=== PATIENT | male | born 1940 | race Caucasian/White ===

== ENCOUNTER 2021-04-26 11:35 | Emergency (ER) | payer MEDICARE, BC, SELFPAY ==
[2021-04-26 11:39] VITALS: BP 156/101; PULSE 104; RESP 20; TEMP 36.4; O2SAT 95; BMI 33.0
--- NOTE | 2021-04-26 11:43 | CT_ITS ---
WS: [id number] CT CERVICAL TRAUMA TECHNIQUE: Noncontrast CT of the cervical spine with coronal and sagittal reformatted images. CLINICAL INFORMATION: head trauma, ams COMPARISON: None. DLP: 794.[address] scans at [facility] use at least one of these dose optimization techniques: automated e xposure control; mA and/or kV adjustment per patient size (includes targeted exams where dose is matc hed to clinical indication); or iterative reconstruction. FINDINGS: Exaggeration of the normal cervical lordosis. Moderate spondylitic changes. Normal craniocervical fidel ction. Normal C1-C2 articulation. Dens is normal in appearance. Normal occipital condyles. No high-gr matt spinal canal narrowing. Normal C1 ring. Chronic appearing well-corticated C7 spinous process frac ture. Normal prevertebral soft tissues. Mastoids air cells are well aerated. CT/CT cervical spin wo con* [id number] IMPRESSION: 1. Chronic appearing well-corticated C7 spinous process fracture. 2. No acute appearing cervical spine fractures.
--- NOTE | 2021-04-26 11:43 | CT_ITS ---
WS: [id number] CT HEAD TECHNIQUE: Noncontrast CT of the head obtained from the skullbase to the vertex. CLINICAL INFORMATION: head trauma, eliquis COMPARISON: None. DLP: 2572.[address] scans at [facility] use at least one of these dose optimization techniques: automated e xposure control; mA and/or kV adjustment per patient size (includes targeted exams where dose is matc hed to clinical indication); or iterative reconstruction. FINDINGS: No evidence of intracranial hemorrhage or mass effect. Ventricular system and basal cisterns are tracey nt. Moderate small vessel changes with moderate parenchymal volume loss. Chronic encephalomalacia in the left occipital lobe with calcification. Chronic infarcts left parietal occipital junction, right posterior temporal lobe, and bilateral posterior frontal lobes with encephalomalacia. Chronic lacunar infarcts in the caudate and basal ganglia. Intracranial vascular calcification. Mastoid air cells ar e well aerated. Mild mucosal thickening ethmoid air cells. Normal visualized soft tissues. CT/CT head wo con* [id number] IMPRESSION: 1. No evidence of intracranial hemorrhage or mass effect. 2. Moderate small vessel changes with moderate parenchymal volume loss. 3. Chronic encephalomalacia in the left occipital lobe with calcification. 4. Chronic lacunar infarcts in the caudate and basal ganglia. 5. No acute intracranial findings.
--- NOTE | 2021-04-26 11:43 | XRR_ITS ---
PROCEDURE INFORMATION: Exam: XR Chest Exam date and time: 04/26/2021 11:43 AM Age: 81 years old Clinical indication: Injury or trauma; Fall; Blunt trauma (contusions or hematomas); Injury date: 04/26/21; Prior surgery; Surgery type: Heart TECHNIQUE: Imaging protocol: XR of the chest. Views: 1 view. COMPARISON: CT cervical spin wo con* [id number] 04/26/2021 12:01 PM FINDINGS: Lungs: No acute pulmonary infiltrates are seen. There is a poor inspiration with elevation of diaphragm. Pleural spaces: Unremarkable. No pleural effusion. No pneumothorax. Heart/Mediastinum: The patient has undergone coronary bypass surgery. The cardiac silhouette is enlarged. Bones/joints: Unremarkable. XR/XR chest 1V portable [id number] IMPRESSION: Cardiomegaly.
--- NOTE | 2021-04-26 11:43 | XRR_ITS ---
PROCEDURE INFORMATION: Exam: XR Pelvis Exam date and time: 04/26/2021 11:43 AM Age: 81 years old Clinical indication: Injury or trauma; Fall; Blunt trauma (contusions or hematomas); Does not apply; Pelvic region; Injury date: 04/26/21; Prior surgery; Surgery type: Penis implant TECHNIQUE: Imaging protocol: XR pelvis. Views: 1 or 2 view. COMPARISON: CT abdomen pelvis w con* [id number] 11/16/2017 11:28 AM FINDINGS: Bones/joints: Chronic degenerative changes are present in the lower lumbar spine with joint space narrowing sclerosis and small osteophytes. There is narrowing of the left hip joint. No fracture or other acute bony abnormalities are seen. Soft tissues: Unremarkable. Organs: Penile prosthesis is present. An intramedullary gagandeep is seen in the proximal left femur. Vasculature: Atherosclerotic calcifications are present in the iliofemoral arteries. XR/XR pelvis 1-2V* [id number] IMPRESSION: No acute bony abnormality.
--- NOTE | 2021-04-26 11:43 | XRR_ITS ---
PROCEDURE INFORMATION: Exam: XR Right Humerus Exam date and time: 04/26/2021 11:43 AM Age: 81 years old Clinical indication: Injury or trauma; Fall; Blunt trauma (contusions or hematomas); Arm, upper; Right; Injury date: 04/26/21 TECHNIQUE: Imaging protocol: XR Right humerus. Views: 2 or more views. COMPARISON: No relevant prior studies available. FINDINGS: Bones/joints: Normal. Soft tissues: Normal. XR/[place] [id number] IMPRESSION: No significant abnormality is seen in the right humerus.
--- NOTE | 2021-04-26 11:46 | ED_ITS ---
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--uses walker--fall risk, in physical therapy) Location of injury: head Severity: moderate Quality: other (laceration right forehead) Associated symptoms-after fall: Reports confusion, difficulty walking (chronic) and other (on elliquis, afib on monitor for EMS); Denies abdominal pain, chest pain, headache(s) or neck pain Review of Systems General: Reports: 10 or more systems reviewed and unremarkable except in HPI and below Const: Denies: fever(s), chills or body aches Eyes: Denies: change in vision ENMT: Denies: throat pain Card: Denies: chest pain Resp: Denies: dyspnea or productive cough GI: Denies: abdominal pain : Denies: flank pain, dysuria or urinary frequency Musc: Reports: extremity swelling (chronic); Denies: neck pain, back pain, extremity pain or joint pain Skin/Breast: Reports: other (laceration right forehead); Denies: rash or erythema Neuro: Reports: difficulty walking (chronic) and confusion; Denies: headache(s), numbness in extremities, weakness in extremities or Slurred speech present Physical Exam Const: COMMON NORMALS: alert and well nourished; negative for patient oriented x3 (oriented to month, name, location but not year/most recent holiday) and negative for healthy appearing EXAM LIMITATIONS: altered mental status GENERAL APPEARANCE: cooperative, well developed and frail appearing; not in distress and no odor of alcohol detected ORIENTATION/CONSCIOUSNESS: Yes awake, Yes oriented to person, Yes oriented to place and Yes confused; not oriented to time HENMT: COMMON NORMALS: normocephalic, external ears normal and Normal external nose present; head/scalp not atraumatic HEAD & SCALP: normocephalic and contusion (with laceration, right forehead); not normal to inspection and not atraumatic FACE & SINUS: sinuses nontender and other (laceration right forehead); no crepitus and no Facial tenderness on exam of face and sinuses NOSE: Normal external nose present and Normal nares present; no Nasal discharge present and no Epistaxis present EXTERNAL EAR: Yes external ears normal MOUTH: Normal oral and palatal mucosa present, lip normal and tongue normal; no mouth trauma and no muffled voice Eye: COMMON NORMALS: Equal, round and reactive pupils present, EOMs intact bilaterally and conjunctivae normal GENERAL EYE: appearance normal, both eyes and all related structures (with exception of evidence of surgery b/l) VISUAL ACUITY: Yes other (poor vision-- says chronic) PERIORBITAL: periorbital findings abnormal (early bruising around right orbit) EYELID: eyelids normal CONJUNCTIVA: Yes conjunctivae normal PUPIL: Yes Equal, round and reactive pupils present Neck/C-Spine: COMMON NORMALS: no JVD GENERAL: Yes normal visual inspection, Yes trachea midline, No anterior neck swelling, No tender and Yes other (bad kyphosis with limited ROM) Chest: COMMONS NORMALS: normal inspection of the chest (except old mid sternotomy) CHEST: Yes Symmetrical chest wall rise, No crepitus, No localized rib tenderness with anteroposterior compression, No Sternal flail present, No Ec chymosis present and No wounds Resp: COMMON NORMALS: normal respiratory effort, No retractions, No use of accessory muscles and clear to auscultation bilaterally EFFORT & INSPECTION: Yes able to speak in complete sentences and Yes symmetric chest movement AUSCULTATION: clear to auscultation bilaterally Cardio: COMMON NORMALS: no JVD RATE: tachycardic PERIPHERAL PULSES: radial pulses present GI: COMMON NORMALS: Soft to palpation and non-tender INSPECTION: Yes normal to inspection, No abdominal wall ecchymosis and No abdominal distension PA LPATION: Yes Soft to palpation, No Tenderness to palpation present (GI) and No Guarding due to palpation present (GI) : COMMON NORMALS: Yes no CVA tenderness BLADDER/KIDNEY EXAM: Yes no CVA tenderness Back/Pelvis: COMMON NORMALS: no CVA tenderness, thoracic and lumbar spine normal to inspection, no thoracic nor lumbar tenderness and thoraco-lumbar ROM normal THORACIC SPINE/UPPER BACK: Yes normal to inspection, Yes thoracic ROM normal and No pain with ROM LUMBAR SPINE/LOWER BACK: Yes normal to inspection, Yes lumbar ROM normal and No pain with ROM PELVIS: Yes no pain with anterior-posterior compression and Yes no pain with lateral compression Extremity: COMMON NORMALS: normal to inspection GENERAL: Yes normal exam except as noted OTHER: PROM of all extremities with axial loading/distraction normal except some pain with PROM right shoulder Neuro: COMMON NORMALS: moves all extremities, no focal motor deficits and no sensory deficits noted; negative for patient oriented x3 (oriented to month, name, location but not year/most recent holiday) SENSORIUM/ORIENTATION: Yes alert, Yes oriented to person, Yes oriented to place and No oriented to time OTHER: Chronic RUE>RLE weakness from old stroke--no other acute neuro findings except his poor orientation Psych: COMMON NORMALS: mental status grossly normal, Normal thought process present, cooperative, normal affect and speech normal ATTITUDE: Yes calm SPEECH: Yes normal speech THOUGHT PROCESS: Normal thought process present ATTENTION/CONCENTRATION: Yes attention grossly intact Skin: COMMON NORMALS: no rashes or lesions noted, turgor normal and no jaundice GENERAL SKIN EXAM: no rashes or lesions noted and turgor normal TRAUMA: laceration Procedures Laceration Laceration 1: Site: face Side (If applicable): right Size (cm): 7 (total with Y shape) Description: stellate (Y shaped), flap and other (through right eyebrow) Depth: simple, single layer Local Anesthetic: lidocaine 1% and with epi Amount of anesthesia used (mL): 8 Pre-repair: wound explored, irrigated extensively and deep structures intact Skin layer closed with: other (ethilon) Size (cm): 5-0 Number of sutures: 9 Technique: simple, interrupted Course ED course: 81 yo m with frequent falls, shuffling gait, deconditioning s/p CVA with right sided weakness who was doing PT when he caught his foot on an elevated piece of trim. He isn't fully oriented here but says that he has a bit of dementia and isn't concerned with this. She feels this is his baseline. There is large lac to right forehead. Will get CT head and cervical spine (elliquis, kyphosis), xray chest, xray right humerus, pelvis xray. does not believe he needs a medical workup. He has known atrial fibrillation. Vital Signs: Vital signs: Vital Signs Temperature 97.7 F 04/26/21 12:27 Pulse Rate 95 04/26/21 12:27 Respiratory Rate 18 04/26/21 12:27 Blood Pressure 142/90 04/26/21 12:27 Pulse Oximetry 96 04/26/21 12:27 MDM - Fall MDM Narrative: Medical decision making narrative: The has provided hearing aids for patient. As time has passed in ER, he has been laughing and interacting. He still has a hard time remembering the year but is otherwise oriented. I performed laceration repair and obtained hemostasis. The patient's head CT and cervical spine CT are neg for acute findings. I would normally consider an observation admission for elderly head injuries on [facility]. However, hospital is completely full and we are boarding patients in the ER. The states she has home health and daughters that could help her watch him closely, and she's okay with monitoring from home. Xrays of the pelvis, humerus (R) and chest w/o acute disease.\ CT head/neck w/o acute findings. Will d/c with family. Lab Data: Labs: Lab Results 04/26/21 Range/Units 12:23 POC Glucose 109 (70-110) mg/dL Discharge Plan Discharge Condition: Stable Discharge Orders: Discharge ED (Routine); Ordered 04/26/21 Ordered By: Roland Knapp Referrals: Melanie Whyte DO [Primary Care Provider] - 1 week (Suture removal forhead. Fall with concussion on blood thinner.) Discharge Diet: Advance as tolerated Discharge Activity: Increase activity as tolerated Patient Instructions: Concussion/Head Injury - Adult, Stitches and Sow[place]a Care Coding Level of Care Code ED Channel Opener for Chg Fwd Exam Comprehensive
[2021-04-26 11:53] VITALS: BP 185/81; PULSE 84; RESP 16; TEMP 36.8; O2SAT 96
[2021-04-26 12:26] LABS: Glucose Point of Care 109 mg/dL (70-110)
[2021-04-26 12:27] VITALS: BP 142/90; PULSE 95; RESP 18; TEMP 36.5; O2SAT 96
--- NOTE | 2021-04-26 13:08 | PC.PHAR ---
PT UNABLE TO CONFIRM MEDICATIONS. PT'S WAS NOT ABLE TO HELP WITH THE MEDICATIONS NOR WAS PT'S DAUGHTER. THE DAUGHTER STATES THAT PT IS ALLERGIC TO MORPHINE. GOING BY MEDICATION HISTORY AND PHARMACY LIST.
[2021-04-26] MEDS: tetanus-dipt-pertussis 0.5 mL SDV IM (13:12)
[2021-04-26 13:17] VITALS: BP 131/78; PULSE 98; RESP 16; TEMP 36.6; O2SAT 96
== END 2021-04-26 13:29 ==
PROVIDERS: Emergency Provider Emergency Medicine; PCP Family Medicine
DX: S01.111A Laceration without foreign body of right eyelid and periocular area, initial encounter (principal); W18.09XA Striking against other object with subsequent fall, initial encounter; Z23 Encounter for immunization
CPT/HCPCS: 12014; 36416; 70450; 71045; 72125; 72170; 73060; 82962; 90471; 90715; 99283

== ENCOUNTER 2021-07-10 10:43 | Emergency (ER) | payer MEDICARE, BC, SELFPAY ==
--- NOTE | 2021-07-10 10:51 | W.ED.FALL ---
HPI - Fall General: Chief Complaint: Head Injury Stated Complaint: FALL WITH LACERATION Time Seen by Provider: 07/10/21 10:50 History of Present Illness: HPI Narrative: Mr. Carvajal is an 81-year-old gentleman with reported history of mild dementia who presents to the emergency department due to a fall. He has previously presented due to fall which he attributes to a history of leg injury resulting in left foot difficulty. The exact circumstances of his fall today are unclear as he is the only one in the room. He does not recall the fall. He currently denies complaints. He does have a laceration above the right eye which he apparently had previously and may be broke up with the stitches. History is otherwise limited by patient's mental status. Tdap administered 04/26/2021. Review of Systems General: Reports: ROS unobtainable due to mental status Physical Exam Narrative: EXAM NARRATIVE: GENERAL/CONSTITUTIONAL - well-appearing. No acute distress. Eyes - PERRL, no conjunctival injection ENMT - laceration with complex T-shaped involving the eyebrow above the right eye. Atraumatic external nose and ears. Jaw alignment normal. Dentition intact. Moist mucous membranes NECK - supple. trachea midline CARDIOVASCULAR - tachycardic rate and regular rhythm. Peripheral pulses 2+ and equal RESPIRATORY -clear to auscultation bilaterally. ABDOMEN/GI - Nontender/Nondistended. MSK - Extremities without obvious deformity or tenderness to palpation SKIN - Warm, Dry NEURO - alert. Poor historian. No focal neurologic deficits. Moves all extremities equally. Procedures Laceration Laceration 1: Site: face Side (If applicable): right Description: stellate, irregular and other (complex T shap through eyebrow with extension to R periorbital region) Local Anesthetic: lidocaine 1% Amount of anesthesia used (mL): 8 Pre-repair: wound explored and irrigated extensively Skin layer closed with: nylon Size (cm): 5-0 Number of sutures: 11 Technique: simple, interrupted Subcutaneous layer closed with: vicryl Size: 5-0 Number of sutures: 3 Technique: simple, interrupted Course ED course: - Patient was seen and evaluated by me at bedside - Patient placed on cardiac monitors, IV access obtained - Initial evaluation notable for exam as noted above, patient does not provide significant history as memory is poor. Laceration with dressing in place, some oozing. -Tdap is up-to-date -Given the patient does not recall event or provoking factors laboratory studies felt to be warranted. No significant finding to explain patient's symptoms. - Imaging notable for no acute internal or bony injury - Laceration was complex to repair with fragile and tissue with abrasion and likely missing piece. - Upon serial reexamination after treatment the patient was improved - Based on patient history, evaluation, labs, and imaging as interpreted the most likely cause of the patient's condition is fall of unclear etiology with closed head injury and forehead laceration repaired with sutures - The results of ED evaluation were discussed with the patient and his family including prescriptions and/or symptomatic cares (if applicable) including appropriate and responsible use, followup plan, and return precautions. The patient and his family verbalized understanding and felt safe for discharge. - Patient discharged in satisfactory condition. Vital Signs: Vital signs: Vital Signs Temperature 98.6 F 07/10/21 11:46 Pulse Rate 96 07/10/21 15:07 Respiratory Rate 22 H 07/10/21 15:07 Blood Pressure 127/95 07/10/21 15:07 Pulse Oximetry 94 07/10/21 15:07 MDM - Fall Medical Records: Attestation: I reviewed the patient's medical records. Lab Data: Attestation: I reviewed the patient's lab results. Labs: Lab Results 07/10/21 07/10/21 07/10/21 11:04 11:04 11:04 WBC 6.2 10^3/uL 10^3/ uL (4.0-10.0) RBC 4.93 10^6/uL 10^6 /uL (4.1-5.3) Hgb 12.9 g/dL g/dL (11.7-16.6) Hct 40.0 % L % (42.0-52.0) MCV 81.1 fl fl (80-94) MCH 26.2 pg L pg (28.0-34.0) MCHC 32.3 g/dL g/dL (30.0-36.0) RDW 16.5 % H % (12.1-15.1) Plt Count 252 10^3/cmm 10^3 /cmm (130-400) MPV 10.2 fL fL (7.4-10.4) Neut % (Auto) 70.7 % % Lymph % (Auto) 14.4 % % [place] % (Auto) 12.1 % % Eos % (Auto) 1.8 % % Baso % (Auto) 0.5 % % Neut # (Auto) 4.37 10^3/uL 10^3 /uL (1.8-7.7) Lymph # (Auto) 0.9 10^3/uL 10^3/ uL (0.8-4.8) [place] # (Auto) 0.8 10^3/uL 10^3/ uL (0.2-0.9) Eos # (Auto) 0.1 10^3/uL 10^3/ uL (0.0-0.8) Baso # (Auto) 0.0 10^3/uL 10^3/ uL (0.0-0.1) Nucleated RBC % (a uto) 0 % % Nucleated RBCs # 0.0 /100WBC /100W BC Sodium 136 mmol/L mmol/L (136-145) Potassium 4.1 mmol/L mmol/L (3.5-5.1) Chloride 104 mmol/L mmol/L (98-107) Carbon Dioxide 21 mmol/L L mmol/ L (22-29) Anion Gap 15.1 (5-19) BUN 16 mg/dL mg/dL (8-23) Creatinine 1.0 mg/dL mg/dL (0.7-1.2) GFR Calculation Not Reportable Glucose 106 mg/dL mg/dL (65-115) Calculated Osmolal ity 284 mOsm/kg L mOs m/kg (285-295) Calcium 8.5 mg/dL mg/dL (8.5-10.5) Total Bilirubin 0.3 mg/dL mg/dL (0.15-1.2) AST 16 U/L U/L (0-40) ALT 15 U/L U/L (0-41) Alkaline Phosphata se 115 IU/L IU/L (40-130) Troponin T Baselin e 40 ng/L H ng/L (0-15) Troponin T 120 Min [place] Troponin T Total Protein 6.3 g/dL L g/dL (6.6-8.7) Albumin 3.8 g/dL g/dL (3.5-5.2) Globulin 2.5 g/dL g/dL (1.3-4.6) 07/10/21 13:45 WBC RBC Hgb Hct MCV MCH MCHC RDW Plt Count MPV Neut % (Auto) Lymph % (Auto) [place] % (Auto) Eos % (Auto) Baso % (Auto) Neut # (Auto) Lymph # (Auto) [place] # (Auto) Eos # (Auto) Baso # (Auto) Nucleated RBC % (a uto) Nucleated RBCs # Sodium Potassium Chloride Carbon Dioxide Anion Gap BUN Creatinine GFR Calculation Glucose Calculated Osmolal ity Calcium Total Bilirubin AST ALT Alkaline Phosphata se Troponin T Baselin e Troponin T 120 Min [place] 38.02 ng/L H ng/L (0-15) Delta Troponin T -1.98 ABS# L ABS# (0-10) Total Protein Albumin Globulin Discharge Plan Discharge Patient Disposition: Home Clinical Impression: Closed head injury, Fall, Laceration, Atrial fibrillation Condition: Stable Prescriptions: New metoprolol tartrate 25 mg tablet 25 mg PO BID Qty: 60 RF: 0 Discharge Orders: Discharge ED (Routine); Ordered 07/10/21 Ordered By: Cristino Grayson Referrals: Melanie Whyte DO [Primary Care Provider] - Discharge Diet: Usual diet Discharge Activity: Resume usual activity Patient Instructions: A-fib (Atrial Fibrillation) (ED), Care For Your Stitches (ED), Fall Prevention for Older Adults (ED), Head Injury (ED), Head Laceration (ED) Activity Restrictions/Additional Instructions: Thank you for visiting the emergency department. You were seen and evaluated for fall with laceration. This was repaired at bedside. Sutures should stay in for 7 days. As instructed, do not get these wet for 24 hours, after that do not soak them. There was a missing piece of skin and so watch for signs of infection including increased pain, redness, drainage, fevers, chills, visual changes, or anything else that you think may need repeat care. Additionally you were found to be in atrial fibrillation with rapid ventricular response. After discussion with cardiology this requires new medication which you will be prescribed. Please follow-up with your primary care provider and cardiology. Please return to the emergency department for anything that you are concerned about and feel needs emergency department evaluation. Coding Level of Care Code ED Division Toll Wire Chief for Gail Liu
[2021-07-10 10:57] VITALS: BP 142/112; PULSE 117; RESP 22; TEMP 36.9; O2SAT 96; BMI 33.0
--- NOTE | 2021-07-10 10:58 | CTR_ITS ---
PROCEDURE INFORMATION: Exam: CT Maxillofacial Without Contrast Exam date and time: 07/10/2021 10:58 AM Age: 81 years old Clinical indication: Injury or trauma; Fall; Blunt trauma (contusions or hematomas); Forehead; Additional info: Fall, head trauma TECHNIQUE: Imaging protocol: Computed tomography images of the face without contrast. Radiation optimization: All CT scans at this facility use at least one of these dose optimization techniques: automated exposure control; mA and/or kV adjustment per patient size (includes targeted exams where dose is matched to clinical indication); or iterative reconstruction. COMPARISON: CT head wo con* [id number] 07/10/2021 11:25 AM RADIATION DOSE METRICS: Total DLP (mGy-cm): 744.34 FINDINGS: Orbital cavity: Orbits are normal. Globes are unremarkable. Bones/joints: No acute fracture. Paranasal sinuses: Normal. No air-fluid levels. Soft tissues: Soft tissue swelling and/or hematoma over the right cheek, orbit and forehead with lacerations over the right frontal scalp and right forehead. CT/CT facial bones wo con* [id number] IMPRESSION: Soft tissue swelling and/or hematoma over the right cheek, orbit and forehead with lacerations over the right frontal scalp and right forehead. Radiation Dose CTDIVOL = (mGy): DLP = 744.34 (mGy-cm)
--- NOTE | 2021-07-10 10:58 | CTR_ITS ---
PROCEDURE INFORMATION: Exam: CT Cervical Spine Without Contrast Exam date and time: 07/10/2021 10:58 AM Age: 81 years old Clinical indication: Injury or trauma; Fall; Blunt trauma; Additional info: Fall, head trauma, AMS TECHNIQUE: Imaging protocol: Computed tomography images of the cervical spine without contrast. Radiation optimization: All CT scans at this facility use at least one of these dose optimization techniques: automated exposure control; mA and/or kV adjustment per patient size (includes targeted exams where dose is matched to clinical indication); or iterative reconstruction. COMPARISON: CT cervical spin wo con* [id number] 04/26/2021 12:01 PM RADIATION DOSE METRICS: Total DLP (mGy-cm): 781.77 FINDINGS: Bones/joints: Dextroscoliosis. Moderate to severe multilevel spine degenerative changes including degenerative disc disease, spondylosis and facet degenerative changes. Discs/Spinal canal/Neural foramina: Multilevel bilateral foraminal stenosis. Lungs: Lung apices are normal. Vasculature: Severe calcified carotid artery disease. Soft tissues: Unremarkable. CT/CT cervical spin wo con* [id number] IMPRESSION: No acute C-spine findings. Radiation Dose CTDIVOL = (mGy): DLP = 781.77 (mGy-cm)
--- NOTE | 2021-07-10 10:58 | CTR_ITS ---
PROCEDURE INFORMATION: Exam: CT Head Without Contrast Exam date and time: 07/10/2021 10:58 AM Age: 81 years old Clinical indication: Injury or trauma; Fall; Blunt trauma (contusions or hematomas); Additional info: Fall, head trauma TECHNIQUE: Imaging protocol: Computed tomography of the head without contrast. Radiation optimization: All CT scans at this facility use at least one of these dose optimization techniques: automated exposure control; mA and/or kV adjustment per patient size (includes targeted exams where dose is matched to clinical indication); or iterative reconstruction. 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 Cerebral ventricles: No ventriculomegaly. Paranasal sinuses: Mild left ethmoid sinus disease. Mastoid air cells: Visualized mastoid air cells are well aerated. Vasculature: Severe calcified intracranial atherosclerotic vessel disease. Bones/joints: Unremarkable. No acute fracture. Soft tissues: Soft tissue swelling and/or hematoma over the right cheek, orbit and forehead. Possible laceration over the right lateral supraorbital area and forehead. CT/CT head wo con* [id number] IMPRESSION: 1. Mild left ethmoid sinus disease. 2. Soft tissue swelling and/or hematoma over the right cheek, orbit and forehead. 3. Possible laceration over the right lateral supraorbital area and forehead. 4. No acute intracranial findings. Radiation Dose CTDIVOL = (mGy): DLP = 1144.02 (mGy-cm)
--- NOTE | 2021-07-10 11:03 | XRR_ITS ---
PROCEDURE INFORMATION: Exam: XR Chest Exam date and time: 07/10/2021 11:03 AM Age: 81 years old Clinical indication: Fall with trauma. Bleeding/hemorrhage. Prior open heart surgery. TECHNIQUE: Imaging protocol: XR of the chest. Views: 1 view. COMPARISON: CR XR chest 1V portable [id number] 04/26/2021 12:10 PM FINDINGS: Lungs: There is mild scarring and/or atelectasis at the lung bases. Pleural spaces: No pleural effusion.. No pneumothorax. Heart/Mediastinum: The cardiac silhouette is unchanged. No gross evidence of pneumomediastinum. Bones/joints: Median sternotomy wires and mediastinal closure hardware is seen. No gross acute fracture. XR/XR chest 1V portable [id number] IMPRESSION: 1. No acute cardiopulmonary abnormality identified. 2. Stable cardiomegaly. Radiation Dose CTDIVOL = (mGy): DLP = (mGy-cm)
[2021-07-10 11:19] LABS: Basophils % 0.5 %; Eosinophils # 0.1 10^3/uL (0.0-0.8); Eosinophils % 1.8 %; Hemoglobin 12.9 g/dL (11.7-16.6); Lymphocytes # 0.9 10^3/uL (0.8-4.8); Lymphocytes % 14.4 %; Mean Corpuscular HGB Conc 32.3 g/dL (30.0-36.0); Mean Corpuscular Hemoglobin 26.2 pg (28.0-34.0); Mean Corpuscular Volume 81.1 fl (80-94); Mean Platelet Volume 10.2 fL (7.4-10.4); Monocytes # 0.8 10^3/uL (0.2-0.9); Monocytes % 12.1 %; Neutrophils # 4.37 10^3/uL (1.8-7.7); Neutrophils % 70.7 %; Nucleated Red Blood Cells % 0 %; Platelet Count 252 10^3/cmm (130-400); Red Blood Count 4.93 10^6/uL (4.1-5.3); Red Cell Distribution Width 16.5 % (12.1-15.1); White Blood Count 6.2 10^3/uL (4.0-10.0)
[2021-07-10 11:40] LABS: Alanine Aminotransferase 15 U/L (0-41); Albumin Level 3.8 g/dL (3.5-5.2); Alkaline Phosphatase 115 IU/L (40-130); Anion Gap 15.1 (5-19); Aspartate Amino Transferase 16 U/L (0-40); Blood Urea Nitrogen 16 mg/dL (8-23); Calcium 8.5 mg/dL (8.5-10.5); Carbon Dioxide 21 mmol/L (22-29); Chloride 104 mmol/L (98-107); Globulin 2.5 g/dL (1.3-4.6); Glucose 106 mg/dL (65-115); Osmolality Calculated 284 mOsm/kg (285-295); Potassium 4.1 mmol/L (3.5-5.1); Sodium 136 mmol/L (136-145); Total Bilirubin 0.3 mg/dL (0.15-1.2); Total Protein 6.3 g/dL (6.6-8.7)
[2021-07-10 11:41] LABS: Troponin(5th) Baseline 40 ng/L (0-15)
[2021-07-10 11:46] VITALS: BP 142/87; PULSE 110; RESP 23; TEMP 37; O2SAT 96
[2021-07-10] MEDS: metoprolol tartrate 1 mg/1 mL SDV 5 mL 2.5 MG IVP (12:42)
[2021-07-10] MEDS: lidocaine 1% INJ 20 mL INJECTION (12:45)
--- NOTE | 2021-07-10 12:59 | ECG_ITS ---
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 Measurements Intervals [place] Rate: 102 P: GA: QRS: 117 QRSD: 110 T: 42 QT: 365 QTc: 477 Interpretive Statements ATRIAL FIBRILLATION WITH RAPID VENTRICULAR RESPONSE INDETERMINATE AXIS LEFT POSTERIOR FASCICULAR BLOCK [QRS AXIS > 109, INFERIOR Q] INFERIOR MYOCARDIAL INFARCTION , PROBABLY OLD [40+ ms Q WAVE AND/OR ST/T ABNORMALITY IN II/aVF] ANTEROLATERAL MYOCARDIAL INFARCTION , OF INDETERMINATE AGE [40+ ms Q WAVE IN I/aVL/V3-V6] No previous ECG available for comparison Electronically Signed On 07-10-2021 15:57:34 [employer] LIBRARY PROFESSOR by Ulysses Jimenez M.D. [id number]
[2021-07-10 14:16] LABS: Troponin 5 2HR 38.02 ng/L (0-15)
[2021-07-10 14:18] LABS: Troponin 5 2HR Delta -1.98 ABS# (0-10)
[2021-07-10] MEDS: metoprolol tartrate 1 mg/1 mL SDV 5 mL 5 MG IVP ×2 (14:26→15:03)
[2021-07-10 15:07] VITALS: BP 127/95; PULSE 96; RESP 22; O2SAT 94
[2021-07-10] MEDS: acetaminophen 325 mg Tablet 650 MG PO (16:13)
--- NOTE | 2021-07-11 13:57 | DCPLANNER ---
auto parts manager had message to schedule a follow up appointment for patient with [facility]. auto parts manager called [facility], spoke with Nicki, gave clinic patients information. A follow up appointment was scheduled for Sunday, July 20, 2021 at 10:[address] Jimenez. auto parts manager called, spoke with patients , gave her the appointment information.
--- NOTE | 2021-08-17 14:33 | DCPLANNER ---
Patient had a follow up appointment scheduled for 07.20.21 with heart care - patient did attend appointment.
== END 2021-07-10 16:30 | disposition home or self-care (01) ==
PROVIDERS: Emergency Provider Emergency Medicine; PCP Family Medicine
DX: S09.8XXA Other specified injuries of head, initial encounter (principal); I48.91 Unspecified atrial fibrillation; S01.111A Laceration without foreign body of right eyelid and periocular area, initial encounter; W19.XXXA Unspecified fall, initial encounter
CPT/HCPCS: 12054; 36415; 70450; 70486; 71045; 72125; 80053; 84484; 85025; 93005; 96374; 96376; 99284; 99291; J3490

== ENCOUNTER 2021-07-22 11:51 | Observation (INO) | payer MEDICARE, BC, SELFPAY ==
[2021-07-22] VITALS (7 sets, daily range): BP systolic 103–139; BP diastolic 60–84; PULSE 74–102; RESP 15–18; TEMP 36.5–36.8; O2SAT 95–99; BMI 31.7; BMI 33.0
--- NOTE | 2021-07-22 11:53 | CTR_ITS ---
PROCEDURE INFORMATION: Exam: CT Cervical Spine Without Contrast Exam date and time: 07/22/2021 11:53 AM Age: 81 years old Clinical indication: Injury or trauma; Fall; Blunt trauma; Patient HX: PT fell this day hitting head TECHNIQUE: Imaging protocol: Computed tomography images of the cervical spine without contrast. Radiation optimization: All CT scans at this facility use at least one of these dose optimization techniques: automated exposure control; mA and/or kV adjustment per patient size (includes targeted exams where dose is matched to clinical indication); or iterative reconstruction. COMPARISON: CT cervical spin wo con* [id number] 07/10/2021 11:31 AM RADIATION DOSE METRICS: Total DLP (mGy-cm): 768.56 FINDINGS: Bones/joints: No fracture or other acute bone or joint abnormalities are seen in the cervical spine. Discs/Spinal canal/Neural foramina: Chronic degenerative disease is present with scattered disc space narrowing sclerosis and osteophytes. There is sclerosis narrowing and hypertrophy of the facet joints. There is no significant spinal stenosis. Lungs: Lung apices are normal. Vasculature: There is bilateral carotid artery calcification. A stent is present in the left carotid artery. There are surgical clips along the right carotid artery. Soft tissues: Unremarkable. CT/CT cervical spin wo con* [id number] IMPRESSION: Chronic degenerative disease. No acute abnormality. Radiation Dose CTDIVOL = (mGy): DLP = 768.56 (mGy-cm)
--- NOTE | 2021-07-22 11:53 | CTR_ITS ---
PROCEDURE INFORMATION: Exam: CT Head Without Contrast Exam date and time: 07/22/2021 11:53 AM Age: 81 years old Clinical indication: Injury or trauma; Fall; Blunt trauma (contusions or hematomas); Injury date: 07/22/2021; Patient HX: PT fell this day. Laceration to R side of head TECHNIQUE: Imaging protocol: Computed tomography of the head without contrast. Radiation optimization: All CT scans at this facility use at least one of these dose optimization techniques: automated exposure control; mA and/or kV adjustment per patient size (includes targeted exams where dose is matched to clinical indication); or iterative reconstruction. COMPARISON: CT head wo con* [id number] 07/10/2021 11:25 AM RADIATION DOSE METRICS: Total DLP (mGy-cm): 1225.28 FINDINGS: Brain: No intracranial hemorrhage, edema or other acute abnormalities are seen in the brain. There is generalized chronic atrophy with prominence of the ventricles and sulci. There is decreased white matter density which indicates chronic small vessel ischemia. There is focal encephalomalacia in the left occipital lobe from old infarct. Cerebral ventricles: The ventricles are prominent due to chronic atrophy. Paranasal sinuses: Visualized sinuses are unremarkable. No fluid levels. Mastoid air cells: Visualized mastoid air cells are well aerated. Bones/joints: Unremarkable. No acute fracture. Soft tissues: There is a subcutaneous hematoma over the right side of the frontal bone. [place] are present in a laceration. There is a tiny subcutaneous bubble of air. CT/CT head wo con* [id number] IMPRESSION: 1. No acute abnormality in the brain. 2. Chronic atrophy with chronic white matter ischemic changes and old left occipital infarct. 3. Right frontal subcutaneous hematoma. Radiation Dose CTDIVOL = (mGy): DLP = 1225.28 (mGy-cm)
--- NOTE | 2021-07-22 11:53 | CTR_ITS ---
PROCEDURE INFORMATION: Exam: CT Maxillofacial Without Contrast Exam date and time: 07/22/2021 11:53 AM Age: 81 years old Clinical indication: Injury or trauma; Fall; Bleeding/hemorrhage and blunt trauma (contusions or hematomas); Forehead; Orbit/periorbital; Right; Patient HX: PT fell this day hitting R periorbital area of face TECHNIQUE: Imaging protocol: Computed tomography images of the face without contrast. Radiation optimization: All CT scans at this facility use at least one of these dose optimization techniques: automated exposure control; mA and/or kV adjustment per patient size (includes targeted exams where dose is matched to clinical indication); or iterative reconstruction. COMPARISON: CT facial bones wo con* [id number] 07/10/2021 11:28 AM RADIATION DOSE METRICS: Total DLP (mGy-cm): 764.56 FINDINGS: Orbital cavity: Orbits are normal. Globes are unremarkable. Bones/joints: No acute fracture. Paranasal sinuses: Normal. No air-fluid levels. Soft tissues: There is a subcutaneous hematoma over the right side of the frontal bone. There are yimi and an overlying laceration. CT/CT facial bones wo con* [id number] IMPRESSION: 1. There is a subcutaneous hematoma over the right frontal region. 2. No significant bony abnormality. Radiation Dose CTDIVOL = (mGy): DLP = 764.56 (mGy-cm)
[2021-07-22 12:43] LABS: Basophils # 0.1 10^3/uL (0.0-0.1); Basophils % 0.5 %; Eosinophils # 0.1 10^3/uL (0.0-0.8); Hemoglobin 12.5 g/dL (11.7-16.6); Lymphocytes % 8.2 %; Mean Corpuscular HGB Conc 30.5 g/dL (30.0-36.0); Mean Corpuscular Hemoglobin 25.9 pg (28.0-34.0); Mean Corpuscular Volume 85.1 fl (80-94); Mean Platelet Volume 9.9 fL (7.4-10.4); Monocytes # 0.8 10^3/uL (0.2-0.9); Monocytes % 6.9 %; Neutrophils # 9.85 10^3/uL (1.8-7.7); Neutrophils % 82.8 %; Nucleated Red Blood Cells % 0 %; Platelet Count 322 10^3/cmm (130-400); Red Blood Count 4.82 10^6/uL (4.1-5.3); Red Cell Distribution Width 16.9 % (12.1-15.1); White Blood Count 11.9 10^3/uL (4.0-10.0)
[2021-07-22 12:59] LABS: Anion Gap 16.3 (5-19); Blood Urea Nitrogen 20 mg/dL (8-23); Calcium 8.3 mg/dL (8.5-10.5); Carbon Dioxide 21 mmol/L (22-29); Chloride 108 mmol/L (98-107); Glucose 119 mg/dL (65-115); Osmolality Calculated 296 mOsm/kg (285-295); Potassium 4.3 mmol/L (3.5-5.1); Sodium 141 mmol/L (136-145)
[2021-07-22 13:02] LABS: Partial Thromboplastin Time 36.9 SECONDS (23.9-36.7)
[2021-07-22] MEDS: acetaminophen 500 mg Tablet PO (13:59)
[2021-07-22] MEDS: tetanus-dipt-pertussis 0.5 mL SDV IM (14:00)
--- NOTE | 2021-07-22 14:06 | XRR_ITS ---
PROCEDURE INFORMATION: Exam: XR Right Knee Exam date and time: 07/22/2021 2:06 PM Age: 81 years old Clinical indication: Injury or trauma; Fall; Blunt trauma; Knee; Injury details: Earlier today patient was walking home when he tripped and fell on his right side. ; Additional info: Knee pain, 2 views TECHNIQUE: Imaging protocol: XR Right knee. Views: 1 or 2 views. COMPARISON: No relevant prior studies available. FINDINGS: Bones/joints: Knee arthroplasty changes seen in place. Lucency seen about the distal tip of the medial tibial plateau arthroplasty fixation screw in the metaphysis is likely chronic. Soft tissues: Soft tissue swelling about the knee. Vasculature: Scattered vascular calcifications. XR/XR knee RT 1-2V [id number] IMPRESSION: 1. Negative for fracture or dislocation. 2. Knee arthroplasty changes seen in place. 3. Soft tissue swelling about the knee. 4. Scattered vascular calcifications. 5. Lucency seen about the distal tip of the medial tibial plateau arthroplasty fixation screw in the metaphysis is likely chronic. Radiation Dose CTDIVOL = (mGy): DLP = (mGy-cm)
--- NOTE | 2021-07-22 14:14 | ED_ITS ---
HPI - General Adult General: Chief complaint: Trauma Stated complaint: FALL, HEAD LAC Time Seen by Provider: 07/22/21 11:53 History of Present Illness: HPI narrative: Patient is a 82-year-old male on apixaban for A. fib presenting to emergency room after an episode of fall. Of note, patient has had 3 episodes of recurrent falls in the last month. Earlier today patient was walking home when he tripped and fell on his right side. Patient has no associated chest pain, shortness of breath palpitation prior to the episode of fall. Patient was noted to have significant pusatile bleeding from the R forehead. Denies any LOC, reports mild right knee bruise. No other focal pain. Patient has been ambulating. On the right leg. Onset:2 hrs ago Duration:once Location:home Severity:moderate Review of Systems Narrative: Constitutional: No fever, no chills. HEENT: No vision changes CV: No chest pain, no palpitations PULM: no cough, no dyspnea. GI: No abdominal pain, no N/V/D. : No dysuria MSKEL: No muscle pain SKIN: +R forehead laceration and brisk bleeding NEURO: No headache, no focal weakness. HEME: No visible bruises PSYCH: Normal mood PFSH ED PFSH: Medical History CVA (cerebral vascular accident) Family History Mother Lupus Dementia Father CAD (coronary artery disease), Onset Age: 64 Grandfather Cancer Denies family history of Diabetes Clotting disorder Chronic kidney disease (CKD) Suicide Anesthesia complication Bleeding disorder Lung disease Stroke Social History Smoking and tobacco status: never smoked Alcohol intake: never Physical Exam Narrative: EXAM NARRATIVE: Head: Atraumatic Eyes: PERRL, conjunctiva without injection ENT: Mucous membrane moist NECK: Supple, ROM intact LUNGS: LCTAB, no crackles/rhonchi CV: RRR ABDOMEN: Soft, nontender in all quadrants EXTREMITY: Normal ROM, +mild R knee tenderness and +R knee bruises, 2+DP/PT pulses R foot SKIN: +R facial/frontal laceration with forehead w/ brisk bleeding NEURO: Awake and alert, no focal motor deficits PSYCH: Normal mood and affect Procedures Laceration Laceration 1: Site: face Side (If applicable): right Size (cm): 5 Description: stellate Depth: simple, single layer Local Anesthetic: lidocaine 1% and with epi Amount of anesthesia used (mL): 5 Pre-repair: wound explored Skin layer closed with: other (vicryl) Size (cm): other (1-0) Number of sutures: 7 Technique: simple, interrupted and other (14 sowmya) Course Vital Signs: Vital signs: Vital Signs Temperature 97.7 F 07/22/21 12:02 Pulse Rate 96 07/22/21 14:03 Respiratory Rate 15 07/22/21 14:03 Blood Pressure 103/82 07/22/21 14:03 Pulse Oximetry 97 07/22/21 14:03 MDM - General Adult MDM Narrative: Medical decision making narrative: 81-year-old male with history of A. fib on Eliquis presented to the emergency room with right-sided facial laceration after mechanical fall. Patient is noted to have brisk bleeding on the right side. It was immediately stopped with direct pressure. 8 figure of 8 sutures and 5 sowmya were placed in the laceration site with successful stoppage of bleeding. Hemoglobin 12.5 currently today. Patient is no longer actively bleeding at this time. CT brain CT face not showing signs of fracture. History of recurrent fall, have performed shared decision making with family and instructed at this time, may be taylor that the patient does not take next pain anymore. Patient tells me that he lives at home with his family. At the present time, patient and family do not feel comfortable going home given extensive fall risks and elects sto stay in the hospital. Disposition: admission for observation and placement. +++++++Will discuss to discontinue patient's apixaban at this time given significant risk for recurrent falls. Patient instructed to follow-up with his primary care provider in the next 48 to 72 hours for reassessment and to be evaluated to see whether he qualifies for home occupational therapy home health, or physical therapy. Rx tylenol PRN pain Disposition: Discharge. Patient counseled regarding diagnostic impression, treatment plan. Patient given ED strict return precautions to return for continuation, worsening, or development of new symptoms. Instructed to f/u w/ PCP regarding symptoms today. Patient verbalized understanding. Patient aware that suture(s) need to be removed in 10 to 14 days. Lab Data: Labs: Lab Results 07/22/21 07/22/21 07/22/21 12:28 12:28 12:28 WBC 11.9 10^3/uL H 10 ^3/uL (4.0-10.0) RBC 4.82 10^6/uL 10^6 /uL (4.1-5.3) Hgb 12.5 g/dL g/dL (11.7-16.6) Hct 41.0 % L % (42.0-52.0) MCV 85.1 fl fl (80-94) MCH 25.9 pg L pg (28.0-34.0) MCHC 30.5 g/dL g/dL (30.0-36.0) RDW 16.9 % H % (12.1-15.1) Plt Count 322 10^3/cmm 10^3 /cmm (130-400) MPV 9.9 fL fL (7.4-10.4) Neut % (Auto) 82.8 % % Lymph % (Auto) 8.2 % % Towner % (Auto) 6.9 % % Eos % (Auto) 1.0 % % Baso % (Auto) 0.5 % % Neut # (Auto) 9.85 10^3/uL H 10 ^3/uL (1.8-7.7) Lymph # (Auto) 1.0 10^3/uL 10^3/ uL (0.8-4.8) Towner # (Auto) 0.8 10^3/uL 10^3/ uL (0.2-0.9) Eos # (Auto) 0.1 10^3/uL 10^3/ uL (0.0-0.8) Baso # (Auto) 0.1 10^3/uL 10^3/ uL (0.0-0.1) Nucleated RBC % (a uto) 0 % % Nucleated RBCs # 0.0 /100WBC /100W BC PT 16.50 SECONDS H S ECONDS (12.1-14.9) INR 1.30 H (0.8-1.2) APTT 36.9 SECONDS H SE CONDS (23.9-36.7) Sodium Potassium Chloride Carbon Dioxide Anion Gap BUN Creatinine GFR Calculation Glucose Calculated Osmolal ity Calcium Blood Type O Positive Rho(D) Type Positive Antibody Screen Negative 07/22/21 12:28 WBC RBC Hgb Hct MCV MCH MCHC RDW Plt Count MPV Neut % (Auto) Lymph % (Auto) Towner % (Auto) Eos % (Auto) Baso % (Auto) Neut # (Auto) Lymph # (Auto) Towner # (Auto) Eos # (Auto) Baso # (Auto) Nucleated RBC % (a uto) Nucleated RBCs # PT INR APTT Sodium 141 mmol/L mmol/L (136-145) Potassium 4.3 mmol/L mmol/L (3.5-5.1) Chloride 108 mmol/L H mmol /L (98-107) Carbon Dioxide 21 mmol/L L mmol/ L (22-29) Anion Gap 16.3 (5-19) BUN 20 mg/dL mg/dL (8-23) Creatinine 1.0 mg/dL mg/dL (0.7-1.2) GFR Calculation Not Reportable Glucose 119 mg/dL H mg/dL (65-115) Calculated Osmolal ity 296 mOsm/kg H mOs m/kg (285-295) Calcium 8.3 mg/dL L mg/dL (8.5-10.5) Blood Type Rho(D) Type Antibody Screen Imaging Data^: Other Imaging: Radiologist's impression: [address] [id number] ReportSigned Patient: Rajiv Carvajal #: [id number]: 1940cct#:[id number]/Sex: 81 / MADM Date: 07/22/21Loc: ERRoom/Bed:Attending Dr: Ordering Provider/Ordering MD: Blanca Higgins MD Date of Service: 07/22/21 Procedure(s): XR knee RT 1-2V 12777 Accession Number(s): [id number] Report Number: [id number] PROCEDURE INFORMATION: Exam: XR Right Knee Exam date and time: 07/22/2021 2:06 PM Age: 81 years old Clinical indication: Injury or trauma; Fall; Blunt trauma; Knee; Injury details: Earlier today patient was walking home when he tripped and fell on his right side. ; Additional info: Knee pain, 2 views TECHNIQUE: Imaging protocol: XR Right knee. Views: 1 or 2 views. COMPARISON: No relevant prior studies available. FINDINGS: Bones/joints: Knee arthroplasty changes seen in place. Lucency seen about the distal tip of the medial tibial plateau arthroplasty fixation screw in the metaphysis is likely chronic. Soft tissues: Soft tissue swelling about the knee. Vasculature: Scattered vascular calcifications. XR/XR knee RT 1-2V 44887 IMPRESSION: 1. Negative for fracture or dislocation. 2. Knee arthroplasty changes seen in place. 3. Soft tissue swelling about the knee. 4. Scattered vascular calcifications. 5. Lucency seen about the distal tip of the medial tibial plateau arthroplasty fixation screw in the metaphysis is likely chronic. Radiation Dose CTDIVOL = (mGy): DLP = (mGy-cm) Dictated By:Bhavesh Whipple MDSigned By:Bhavesh Whipple MDSigned Date/Time:07/22/21 1459DD/ [address] [address]JV Scan ReportSigned Patient: Rajiv Carvajal #: [id number]: 1940cct#:[id number]/Sex: 81 / MADM Date: 07/22/21Loc: ERRoom/Bed:Attending Dr: Ordering Provider/Ordering MD: Blanca Higgins MD Date of Service: 07/22/21 Procedure(s): CT head wo con* [id number] Accession Number(s): [id number] Report Number: [id number] PROCEDURE INFORMATION: Exam: CT Head Without Contrast Exam date and time: 07/22/2021 11:53 AM Age: 81 years old Clinical indication: Injury or trauma; Fall; Blunt trauma (contusions or hematomas); Injury date: 07/22/2021; Patient HX: PT fell this day. Laceration to R side of head TECHNIQUE: Imaging protocol: Computed tomography of the head without contrast. Radiation optimization: All CT scans at this facility use at least one of these dose optimization techniques: automated exposure control; mA and/or kV adjustment per patient size (includes targeted exams where dose is matched to clinical indication); or iterative reconstruction. COMPARISON: CT head wo con* [id number] 07/10/2021 11:25 AM RADIATION DOSE METRICS: Total DLP (mGy-cm): 1225.28 FINDINGS: Brain: No intracranial hemorrhage, edema or other acute abnormalities are seen in the brain. There is generalized chronic atrophy with prominence of the ventricles and sulci. There is decreased white matter density which indicates chronic small vessel ischemia. There is focal encephalomalacia in the left occipital lobe from old infarct. Cerebral ventricles: The ventricles are prominent due to chronic atrophy. Paranasal sinuses: Visualized sinuses are unremarkable. No fluid levels. Mastoid air cells: Visualized mastoid air cells are well aerated. Bones/joints: Unremarkable. No acute fracture. Soft tissues: There is a subcutaneous hematoma over the right side of the frontal bone. Sowmya are present in a laceration. There is a tiny subcutaneous bubble of air. CT/CT head wo con* [id number] IMPRESSION: 1. No acute abnormality in the brain. 2. Chronic atrophy with chronic white matter ischemic changes and old left occipital infarct. 3. Right frontal subcutaneous hematoma. Radiation Dose CTDIVOL = (mGy): DLP = 1225.28 (mGy-cm) Dictated By:Robe Traore By:Robe Traore Date/Time:07/22/21 1356DD/ 1153 [facility] [place] [id number] Scan ReportSigned Patient: Rajiv Carvajal #: [id number]: 1940cc#:[id number] ge/Sex: 81 / MADM Date: 07/22/21Loc: ERRoom/Bed:Attending Dr: Ordering Provider/Ordering MD: Blanca Higgins MD Date of Service: 07/22/21 Procedure(s): CT facial bones wo con* [id number] Accession Number(s): [id number] Report Number: [id number] PROCEDURE INFORMATION: Exam: CT Maxillofacial Without Contrast Exam date and time: 07/22/2021 11:53 AM Age: 81 years old Clinical indication: Injury or trauma; Fall; Bleeding/hemorrhage and blunt trauma (contusions or hematomas); Forehead; Orbit/periorbital; Right; Patient HX: PT fell this day hitting R periorbital area of face TECHNIQUE: Imaging protocol: Computed tomography images of the face without contrast. Radiation optimization: All CT scans at this facility use at least one of these dose optimization techniques: automated exposure control; mA and/or kV adjustment per patient size (includes targeted exams where dose is matched to clinical indication); or iterative reconstruction. COMPARISON: CT facial bones wo con* [id number] 07/10/2021 11:28 AM RADIATION DOSE METRICS: Total DLP (mGy-cm): 764.56 FINDINGS: Orbital cavity: Orbits are normal. Globes are unremarkable. Bones/joints: No acute fracture. Paranasal sinuses: Normal. No air-fluid levels. Soft tissues: There is a subcutaneous hematoma over the right side of the frontal bone. There are sowmya and an overlying laceration. CT/CT facial bones wo con* [id number] IMPRESSION: 1. There is a subcutaneous hematoma over the right frontal region. 2. No significant bony abnormality. Radiation Dose CTDIVOL = (mGy): DLP = 764.56 (mGy-cm) Dictated By:Robe Traore By:Robe Traore Date/Time:07/22/21 1402DD/ 1153 [facility] [place] [id number] Scan ReportSigned Patient: Rajiv Carvajal #: [id number]: cct#:[id number]/Sex: 81 / MADM Date: 07/22/21Loc: ERRoom/Bed:Attending Dr: Ordering Provider/Ordering MD: Blanca Higgins MD Date of Service: 07/22/21 Procedure(s): CT cervical spin wo con* [id number] Accession Number(s): [id number] Report Number: [id number] PROCEDURE INFORMATION: Exam: CT Cervical Spine Without Contrast Exam date and time: 07/22/2021 11:53 AM Age: 81 years old Clinical indication: Injury or trauma; Fall; Blunt trauma; Patient HX: PT fell this day hitting head TECHNIQUE: Imaging protocol: Computed tomography images of the cervical spine without contrast. Radiation optimization: All CT scans at this facility use at least one of these dose optimization techniques: automated exposure control; mA and/or kV adjustment per patient size (includes targeted exams where dose is matched to clinical indication); or iterative reconstruction. COMPARISON: CT cervical spin wo con* [id number] 07/10/2021 11:31 AM RADIATION DOSE METRICS: Total DLP (mGy-cm): 768.56 FINDINGS: Bones/joints: No fracture or other acute bone or joint abnormalities are seen in the cervical spine. Discs/Spinal canal/Neural foramina: Chronic degenerative disease is present with scattered disc space narrowing sclerosis and osteophytes. There is sclerosis narrowing and hypertrophy of the facet joints. There is no significant spinal stenosis. Lungs: Lung apices are normal. Vasculature: There is bilateral carotid artery calcification. A stent is present in the left carotid artery. There are surgical clips along the right carotid artery. Soft tissues: Unremarkable. CT/CT cervical spin wo con* [id number] IMPRESSION: Chronic degenerative disease. No acute abnormality. Radiation Dose CTDIVOL = (mGy): DLP = 768.56 (mGy-cm) Dictated By:Robe Traore By:Robe Traore Date/Time:07/22/21 1359DD/ 1153 Discharge Plan Discharge Prescriptions: No Action topiramate [Topamax] 50 mg tablet 75 mg PO BID RF: 0 Eliquis 5 mg tablet 5 mg PO BID RF: 0 bupropion HCl 100 mg tablet 100 mg PO TID RF: 0 Multaq 400 mg tablet 400 mg PO BID RF: 0 sertraline 50 mg tablet 50 mg PO DAILY RF: 0 cholecalciferol (vitamin D3) 125 mcg (5,000 unit) capsule 125 mcg PO Q30D RF: 0 atorvastatin 40 mg tablet 40 mg PO DAILY RF: 0 melatonin 3 mg tablet 3 mg PO DAILY RF: 0 finasteride 5 mg tablet 5 mg PO DAILY RF: 0 alprazolam 0.25 mg tablet 0.25 mg PO DAILY RF: 0 calcium carbonate [Calcium 600] 600 mg calcium (1,500 mg) tablet 600 mg PO DAILY RF: 0 nystatin 100,000 unit/gram powder 1 applic topical BID PRNRF: 0 nystatin 100,000 unit/gram cream 1 applic topical BID PRNRF: 0 metoprolol tartrate 25 mg tablet 25 mg PO BID Qty: 60 RF: 0 Coding Level of Care Code ED 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
--- NOTE | 2021-07-22 16:51 | PM.HP ---
Providers/Chief Complaint Primary Care Provider: Melanie Whyte DO Chief Complaint: FALL, HEAD LAC History of Present Illness Ayo Carvajal is a 81 year old male who presented to the emergency department with history of fall. According to family he has frequent falls, perhaps 3 in the last month or so. He has different falls recorded here in the emergency department, as far back as April. Many of these falls he falls to the right and injured the right side of his head. 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 He has atrial fibrillation and recently cardiology was going to consider an event monitor secondary to episodes of falling, thinking it may be related to arrhythmia. He has had no chest discomfort. His fall today resulted in a laceration, and from my understanding 7 sutures were placed. He did not lose consciousness. He has no new focal deficits. X-rays demonstrated no fracture. Besides hitting his head he hit his right knee and has a hematoma over his patella. Since the stroke he has had poor memory. Family is aware that if his weakness and limitations and he has been getting therapy at home. They are very concerned regarding the frequency of his falls in the last month, worsening weakness, and would like consideration of nursing facility placement as well. Review of Systems General: Reports: 10 or more systems reviewed and unremarkable except in HPI and below Const: Denies: fever(s) or chills Eyes: Reports: blind spots ENMT: Denies: throat pain Card: Reports: palpitations and irregular heart rhythm; Denies: chest pain Resp: Denies: dyspnea, productive cough or non-productive cough GI: Denies: abdominal pain, nausea or vomiting : Denies: flank pain Musc: Reports: extremity pain; Denies: neck pain Skin/Breast: Denies: rash Neuro: Reports: weakness in extremities Psych: Reports: depression Endo: Denies: polyuria Marcio/Lymph: Denies: easy bruising All/Imm: Denies: urticaria Medications/Allergies Home Medications Medication Instructions Recorded Confirmed Last Taken Type metoprolol tartrate 25 mg PO BID #60 tab 07/10/21 07/22/21 07/22/21 Rx alprazolam 0.25 mg tablet 0.25 mg PO BEDTIME PRN 07/20/21 07/22/21 Unknown History apixaban 5 mg tablet 5 mg PO BID 07/20/21 07/22/21 07/22/21 History atorvastatin 40 mg tablet 40 mg PO DAILY 07/20/21 07/22/21 07/21/21 History bupropion HCl 100 mg tablet 100 mg PO TID 07/20/21 07/22/21 07/22/21 History calcium carbonate 600 mg calcium 600 mg PO DAILY 07/20/21 07/22/21 07/22/21 History (1,500 mg) tablet dronedarone 400 mg tablet 400 mg PO BID 07/20/21 07/22/21 07/22/21 History finasteride 5 mg tablet 5 mg PO DAILY 07/20/21 07/22/21 07/21/21 History melatonin 3 mg tablet 3 mg PO BEDTIME 07/20/21 07/22/21 07/21/21 History nystatin 100,000 unit/gram topical 1 applic TOPICAL BID PRN g 07/20/21 07/22/21 Unknown History cream sertraline 50 mg tablet 50 mg PO DAILY 07/20/21 07/22/21 07/21/21 History topiramate 50 mg tablet 75 mg PO BID tab 07/20/21 07/22/21 07/22/21 History ergocalciferol (vitamin D2) 1,250 mcg PO Q30D 07/22/21 07/22/21 Unknown History Allergies Allergy/AdvReac Type Severity Reaction Status Date / Time oxycodone Allergy hallucinati Verified 07/20/21 10:37 ons PFSH Acute PFSH: Medical History (Updated 07/22/21 @ 18:36 by Ryder Palmer MD) Afib BPH (benign prostatic hyperplasia) CVA (cerebral vascular accident) Decreased vision Depression Difficulty walking History of cardioversion Hyperlipidemia Surgical History (Updated 07/22/21 @ 17:05 by Ryder Palmer MD) History of quadruple bypass Hx of knee surgery Hx of parathyroidectomy Hx of total knee replacement Family History Mother Lupus Dementia Father CAD (coronary artery disease), Onset Age: 64 Grandfather Cancer Denies family history of Diabetes Clotting disorder Chronic kidney disease (CKD) Suicide Anesthesia complication Bleeding disorder Lung disease Stroke Social History Smoking and tobacco status: never smoked Alcohol intake: never Vitals/I&O/Wt Last Vital Signs Temp 97.7 F 07/22/21 12:02 Pulse 92 07/22/21 15:57 Resp 16 07/22/21 15:57 BP 103/82 07/22/21 14:03 Pulse Ox 96 07/22/21 15:57 Weight last 48 hrs Weight 100.244 kg Physical Exam Narrative: EXAM NARRATIVE: General exam is a white male, who is very hard of hearing, who responds appropriately when questioned. He seems to have some memory deficits but family supplements history. HEENT: Large bandage is present over his right forehead where his trauma occurred and suturing occurred. Right and left thigh demonstrate a pupil that is reactive. Flickering is noted consistent with cataract lens replacement. Oropharynx is clear Neck is supple, surgical scar consistent with carotid endarterectomy noted on the left Cardiovascular irregular, irregular with a 2/6 systolic murmur Lungs clear no wheezing or crackles Abdomen is soft, positive bowel sounds. No obvious organomegaly exam is deferred Extremities no cyanosis clubbing. Trace edema is present bilaterally. Venous stasis changes noted bilaterally. Skin no rash Neuro some difficulty in word finding ability. Some weakness, 4/5 on the right upper and right lower extremity. Family assures me this is old. Data : 07/22/21 12:28 07/22/21 12:28 Other data: INR 1.3 Calcium 8.3 TSH ordered and pending Knee x-ray on the right knee arthroplasty noted with no fracture Head CT no intracranial hemorrhage. Chronic atrophy and old left occipital infarct noted. Face CT no fracture Cervical spine CT no fracture I have also ordered an EKG and a urinalysis. A&P Assessment and plan (1) Fall: Cannot rule out arrhythmia generating fall although I think it is less likely. He did not have loss of consciousness according to who was in next room. Patient himself cannot remember exactly why he fell. He has had lots of falls recently, mainly with injuries to the right side of his head. With his prior history of stroke causing partial hemiparesis on the right, blindness, memory difficulties, hearing difficulties he is at high risk for fall. Status: Acute (2) Arrhythmia: Cardiology was concerned during the last visit that arrhythmia could have been a cause of his falls. Further work-up such as echocardiogram, and event monitor were entertained. Family would like involvement of cardiology during this hospital stay for this reason. I have consulted cardiology. Status: Acute (3) Closed head injury: He sustained a laceration to his right forehead requiring multiple sutures. From my understanding there was some arterial bleeding which was resolved with suturing. We will hold his apixaban tonight. Not a good candidate for HIT considering multiple falls. Will reassess by cardiology, and discussed with family whether he should continue this in the future. Status: Acute Additional A&P Information Coronary artery disease. Appears stable currently History of hypertension Allow natural . Although they would want to entertain any discussion regarding possibilities of treatment if he takes a downturn. Lovenox for DVT prophylaxis Observation. Family would like consideration of rehabilitation considering multiple falls and weakness. Will consult discharge planning for possible skilled nursing placement. Physical therapy and Occupational Therapy consultations. Attestations Medical Necessity Statement*: Will Need less than 2 midnights stay for evaluation of mechanical fall with closed head injury. Time Spent in Patient Care: Greater than 35 minutes Coding Level of Care Code Acute Race Starter for [facility] Fwd Diagnoses Fall W19.XXXA Arrhythmia I49.9 Closed head injury S09.90XA
--- NOTE | 2021-07-22 17:17 | ECG_ITS ---
[facility] Test Date: 2021-07-22 Pat Name: Ayo Carvajal Department: Room: 253 Gender: Male Admitting Coordinator: : 1940 Requested By: Ryder Babin Order Number: [id number] Aron MD: 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 Measurements Intervals [place]gett Rate: 102 P: CT: QRS: -28 QRSD: 119 T: 47 QT: 369 QTc: 482 Interpretive Statements ATRIAL FIBRILLATION WITH RAPID VENTRICULAR RESPONSE WITH ABERRANT CONDUCTION OR VENTRICULAR PREMATURE COMPLEXES ANTEROLATERAL MYOCARDIAL INFARCTION , PROBABLY OLD [40+ ms Q WAVE IN I/aVL/V3-V6] Compared to ECG 07/10/2021 14:22:08 Ventricular premature complex(es) now present Aberrant conduction of supraventricular beat(s) now present Indeterminate axis no longer present Left posterior fascicular block no longer present Myocardial infarct finding still present Electronically Signed On 07-25-2021 17:31:04 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 [id number]
[2021-07-22 17:38] LABS: Thyroid Stimulating Hormone 4.85 uIU/mL (0.27-4.20)
[2021-07-22 20:21] LABS: Add Urine Culture? No; Bacteria Urine TRACE /hpf; Bilirubin Urine 1+ (Negative); Blood Urine Neg (Negative); Glucose Urine UA Norm (Normal); Ketones Urine Negative (Negative); Leukocyte Esterase Urine Negative (Negative); Nitrate Urine Negative (Negative); Protein Urine Neg (Negative); RBC Urine 0-4 /hpf (0-2); Specific Gravity, Urine 1.015 (1.005-1.030); Squamous Epithelial Cell Urine 0-4 /hpf (0-5); Urine Appearance Clear (CLEAR); Urine Color Yellow (Yellow); Urobilinogen Urine 1 mg/dL (Negative); pH Urine 6.5 (5-7)
[2021-07-22] MEDS: metoprolol tartrate 25 mg Tablet PO (21:22)
[2021-07-22] MEDS: enoxaparin 40 mg/0.4 mL Syringe SUBCUT (21:22)
[2021-07-22] MEDS: acetaminophen 325 mg Tablet 650 MG PO (22:18)
[2021-07-23] VITALS (10 sets, daily range): BP systolic 110–132; BP diastolic 60–77; PULSE 72–97; RESP 16–19; TEMP 36.6–36.9; O2SAT 95–97
[2021-07-23 05:37] LABS: Basophils % 0.2 %; Hematocrit 35.3 % (42.0-52.0); Hemoglobin 10.8 g/dL (11.7-16.6); Lymphocytes # 0.8 10^3/uL (0.8-4.8); Mean Corpuscular HGB Conc 30.6 g/dL (30.0-36.0); Mean Corpuscular Hemoglobin 25.8 pg (28.0-34.0); Mean Corpuscular Volume 84.2 fl (80-94); Monocytes # 0.9 10^3/uL (0.2-0.9); Monocytes % 9.6 %; Neutrophils % 80.7 %; Nucleated Red Blood Cells % 0 %; Platelet Count 282 10^3/cmm (130-400); Red Blood Count 4.19 10^6/uL (4.1-5.3); Red Cell Distribution Width 16.6 % (12.1-15.1); White Blood Count 9.2 10^3/uL (4.0-10.0)
[2021-07-23 06:18] LABS: Alanine Aminotransferase 14 U/L (0-41); Albumin Level 3.5 g/dL (3.5-5.2); Alkaline Phosphatase 111 IU/L (40-130); Anion Gap 14.8 (5-19); Aspartate Amino Transferase 15 U/L (0-40); Blood Urea Nitrogen 21 mg/dL (8-23); Calcium 8.1 mg/dL (8.5-10.5); Carbon Dioxide 22 mmol/L (22-29); Chloride 105 mmol/L (98-107); Globulin 2.2 g/dL (1.3-4.6); Glucose 120 mg/dL (65-115); Osmolality Calculated 290 mOsm/kg (285-295); Potassium 3.8 mmol/L (3.5-5.1); Sodium 138 mmol/L (136-145); Total Bilirubin 0.3 mg/dL (0.15-1.2); Total Protein 5.7 g/dL (6.6-8.7)
[2021-07-23] MEDS: sertraline 50 mg Tablet PO (08:20)
[2021-07-23] MEDS: finasteride 5 mg Tablet PO (08:20)
[2021-07-23] MEDS: atorvastatin 40 mg Tablet PO (08:21)
[2021-07-23] MEDS: metoprolol tartrate 25 mg Tablet PO ×2 (08:21→16:34)
--- NOTE | 2021-07-23 11:30 | PM.CONSULT ---
Providers/Reason For Consult Consulting Physician/Specialty*: Wilmar Kiran MD/ Cardiology Reason for Consult*: Fall/ possible arrhtyhmia Requesting Physician: Dr Palmer Attending Physician: Sg Lara MD Primary Care Provider: Melanie Whyte DO History of Present Illness History of Present Illness Ayo Carvajal is a 81 year old male with past medical history of CVA, atrial fibrillation, carotid stenosis has presented with frequent falls. Cardiology was consulted as there was concern for atrial fibrillation causing falls. He has previous stroke and has partial right hemiparesis. He is also legally blind. Presenting EKG shows atrial fibrillation with RVR and heart rate of 102 bpm. Telemetry does not show significant pauses. Patient had a fall today and has a laceration after hitting his head. Echo shows mildly decreased LVEF of 45 to 50% and mild aortic stenosis. Review of Systems General: Reports: ROS unobtainable due to mental status Meds/Allergies Home Medications and Allergies Home Medications Medication Instructions Recorded Confirmed Last Taken Type alprazolam 0.25 mg tablet 0.25 mg PO BEDTIME PRN 07/20/21 07/27/21 Unknown History apixaban 5 mg tablet 5 mg PO BID 07/20/21 07/27/21 07/22/21 History atorvastatin 40 mg tablet 40 mg PO DAILY@07/20/21 07/27/21 07/26/21 History calcium carbonate 600 mg calcium 600 mg PO DAILY@07/20/21 07/27/21 07/27/21 History (1,500 mg) tablet dronedarone 400 mg tablet 400 mg PO BID@07/20/21 07/27/21 07/27/21 08:00 History finasteride 5 mg tablet 5 mg PO DAILY@07/20/21 07/27/21 07/27/21 History melatonin 3 mg tablet 3 mg PO BEDTIME@07/20/21 07/27/21 07/21/21 History nystatin 100,000 unit/gram topical 1 applic TOPICAL BID g 07/20/21 07/27/21 Unknown History cream sertraline 50 mg tablet 50 mg PO DAILY@08 07/20/21 07/27/21 07/27/21 08:00 History topiramate 50 mg tablet 75 mg PO BID@ tab 1207/27/21 07/27/21 08:00 History ergocalciferol (vitamin D2) 1,250 mcg PO Q30D 07/22/21 07/27/21 Unknown History bupropion HCl 100 mg PO BID@07/27/21 07/27/21 07/27/21 08:00 History fluconazole [Diflucan] 150 mg PO DAILY@07/27/21 07/27/21 07/26/21 History metoprolol tartrate 25 mg PO BID@07/27/21 07/27/21 07/27/21 08:00 History Allergies Allergy/AdvReac Type Severity Reaction Status Date / Time acetaminophen [From [place]] Allergy Unknown Verified 07/27/21 12:45 hydrocodone [From [place]] Allergy Unknown Verified 07/27/21 12:45 oxycodone Allergy hallucinati Verified 07/20/21 10:37 ons ramipril [From Altace] Allergy Unknown Verified 07/27/21 12:45 rofecoxib [From Vioxx] Allergy Unknown Verified 07/27/21 12:45 Current Medications Current Medications Generic Name Dose Route Start Last Admin Trade Name Freq PRN Reason Stop Dose Admin Acetaminophen 650 mg 07/22/21 19:46 07/22/21 22:18 Acetaminophen 325 Mg Tablet PO 650 mg Q6H PRN Administration Mild/Mod Pain Or Temp >/= 101 Atorvastatin Calcium 40 mg 07/23/21 09:00 07/23/21 08:21 Atorvastatin 40 Mg Tablet PO 40 mg DAILY FANI Administration Enoxaparin Sodium 40 mg 07/22/21 20:00 07/22/21 21:22 Enoxaparin 40 Mg/0.4 Ml Syringe SUBCUT 40 mg Q24H FANI Administration Finasteride 5 mg 07/23/21 09:00 07/23/21 08:20 Finasteride 5 Mg Tablet PO 5 mg DAILY FANI Administration Metoprolol Tartrate 25 mg 07/22/21 19:46 07/23/21 08:21 Metoprolol Tartrate 25 Mg Tablet PO 25 mg BID FANI Administration Non-Formulary Medication 100 mg 07/22/21 21:00 07/23/21 07:43 Bupropion Hcl PO Not Given TID FANI Non-Formulary Medication 400 mg 07/22/21 19:46 07/23/21 07:43 Dronedarone [[place]] PO Not Given BID FANI Sertraline HCl 50 mg 07/23/21 09:00 07/23/21 08:20 Sertraline 50 Mg Tablet PO 50 mg DAILY FANI Administration Topiramate 75 mg 07/23/21 09:00 07/23/21 08:48 Topiramate 25 Mg Tablet PO Not Given BID FANI PFSH Acute PFSH: Medical History Afib Arrhythmia BPH (benign prostatic hyperplasia) CVA (cerebral vascular accident) Decreased vision Depression Difficulty walking Fall History of cardioversion Hyperlipidemia Surgical History History of quadruple bypass Hx of knee surgery Hx of parathyroidectomy Hx of total knee replacement Family History Mother Lupus Dementia Father CAD (coronary artery disease), Onset Age: 64 Grandfather Cancer Denies family history of Diabetes Clotting disorder Chronic kidney disease (CKD) Suicide Anesthesia complication Bleeding disorder Lung disease Stroke Social History Smoking and tobacco status: never smoked Alcohol intake: never Vitals/I&O/Wt Last Vital Signs Temp 97.9 F 07/23/21 11:28 Pulse 76 07/23/21 11:28 Resp 18 07/23/21 11:28 BP 110/60 07/23/21 11:28 Pulse Ox 95 07/23/21 11:28 07/22/21 07/23/21 07/23/21 22:59 06:59 14:59 Intake Total 110 / 110 360 / 360 Output Total 175 / 175 300 / 475 Balance -65 / -65 -300 / -365 360 / 360 Weight last 48 hrs Weight 223 lb 8 oz Weight 221 lb Physical Exam Narrative: EXAM NARRATIVE: GENERAL: Confused NECK: No jugular vein distension. [] HEENT: No cyanosis. No icterus. No pallor. [] HEART: Regular S1 and S2. No murmur, rub or gallop. [] LUNGS: Clear to auscultate bilaterally. [] ABDOMEN: Soft, nontender and nondistended. Positive bowel sounds. No guarding, rebound or tenderness. [] CENTRAL NERVOUS SYSTEM: Grossly nonfocal. [] EXTREMITIES: Lower extremities with 1+ edema bilaterally. Pulses palpable in the lower extremities, both dorsalis pedis and posterior tibial. [] A&P Assessment and plan (1) Intermittent atrial fibrillation: Status: Acute (2) Frequent falls: Status: Acute (3) Mild aortic stenosis: Status: Acute Patient's falls do not appear to be associated with his arrhythmias. No arrhythmias noted on telemetry. He has a history of stroke. Partial hemiparesis and he is legally blind. Continue telemetry. At time of discharge can be put on outpatient event monitor. I had a detailed discussion with patient's family regarding stopping anticoagulation. We discussed that that will put him at risk of stroke however given frequent falls, his risk of having major head bleed is higher at this time. Shared decision was made to hold anticoagulation. No further cardiac work-up at this time. Thank you for involving us with care of this patient. Please call with questions Coding Level of Care Code Acute Shirt Line Operator for Gail Liu Diagnoses Intermittent atrial fibrillation I48.0 Frequent falls R29.6 Mild aortic stenosis I35.0
[2021-07-23 11:55] LABS: Chol HDL Ratio 2.58 mg/dL (1.0-5.00); Cholesterol 103 mg/dL (0-200); HDL Cholesterol 40 mg/dL (60-100); Iron 27 ug/dL (59-158); LDL Cholesterol Calculated 48 mg/dL (50-129); Percent Saturation 9.6 % (20-50); Total Iron Binding Capacity 281 mcg/dl; Triglycerides 75 mg/dL (0-150); Unsaturated Iron Binding 254 ug/dL (112-347); VLDL Cholestrol Calculation 15 mg/dL (0-30)
[2021-07-23 12:04] LABS: Free T4 Free Thyroxine 0.88 ng/dL (0.82-1.77); T3 Free 1.8 PG/ML (2.0-4.4)
--- NOTE | 2021-07-23 14:47 | P.PN_ITS ---
Subjective Subjective: Interval history: Hospital course, labs appreciated. Patient lying comfortably in bed. at bedside. Patient denies any active complaints. Patient seen with cardiology today. Has remained hemodynamically stable and afebrile. Vitals/I&O/Wt Last Vital Signs Temp 97.9 F 07/23/21 11:28 Pulse 76 07/23/21 11:28 Resp 18 07/23/21 11:28 BP 110/60 07/23/21 11:28 Pulse Ox 95 07/23/21 11:28 07/22/21 07/23/21 07/23/21 22:59 06:59 14:59 Intake Total 110 / 110 480 / 480 Output Total 175 / 175 300 / 475 Balance -65 / -65 -300 / -365 480 / 480 Weight last 48 hrs Weight 101.378 kg Weight 100.244 kg Physical Exam Narrative: EXAM NARRATIVE: General exam is a white male, who is very hard of hearing, who responds appropriately when questioned. He seems to have some memory deficits but family supplements history. HEENT: Multiple well scabbed sutures present on the right forehead above the eyebrow. Right and left demonstrate a pupil that is reactive. Flickering is noted consistent with cataract lens replacement. Oropharynx is clear Neck is supple, surgical scar consistent with carotid endarterectomy noted on the left Cardiovascular irregular, irregular with a 2/6 systolic murmur Lungs clear no wheezing or crackles Abdomen is soft, positive bowel sounds. No obvious organomegaly exam is deferred Extremities no cyanosis clubbing. Trace edema is present bilaterally. Venous stasis changes noted bilaterally. Skin no rash Neuro some difficulty in word finding ability. Some weakness, 4/5 onupper and right lower extremity. Family assures me this is old. Data : 07/23/21 02:53 07/23/21 02:53 A&P Assessment and plan (1) Fall: Most likely mechanical secondary to residual right-sided partial hemiparesis, blindness, memory deficits and hearing difficulties. Cannot rule out arrhythmia generating fall although I think it is less likely. Continue with telemetry. PT/OT evaluation. Status: Acute (2) Arrhythmia: Cardiology consulted. Echocardiogram awaited. Cardiology was concerned during the last visit that arrhythmia could have been a cause of his falls. Further work-up such as echocardiogram, and event monitor were entertained. Appreciate cardiology recommendations. Status: Acute (3) Closed head injury: He sustained a laceration to his right forehead requiring multiple sutures. From my understanding there was some arterial bleeding which was resolved with suturing. We will hold his apixaban tonight. Not a good candidate for HIT considering multiple falls. Will reassess by cardiology, and discussed with family whether he should continue this in the future. Status: Acute Additional A&P Information Coronary artery disease. Appears stable currently History of hypertension Allow natural . Although they would want to entertain any discussion regarding possibilities of treatment if he takes a downturn. Lovenox for DVT prophylaxis Observation. Family would like consideration of rehabilitation considering multiple falls and weakness. Will consult discharge planning for possible intermediate placement. Physical therapy and Occupational Therapy consultations. Attestations Medical Necessity Statement*: Requires further hospitalization for evaluation of mechanical fall with closed head injury while safe discharge planning is sought. Time Spent in Patient Care: Greater than 35 minutes (>than 50% of time spent in counselling and/or direct pt care on unit) . Coding Level of Care Code Acute Canoe Inspector Final for Gail Liu Diagnoses Fall W19.XXXA Arrhythmia I49.9 Closed head injury S09.90XA
[2021-07-23] MEDS: topiramate 25 mg Tablet 75 MG PO (16:34)
[2021-07-23] MEDS: acetaminophen 325 mg Tablet 650 MG PO ×2 (16:36→20:19)
--- NOTE | 2021-07-23 19:46 | USCV_ITS ---
Ayo Carvajal Age: 81 Gender: M : 1940 Exam Date: 07/23/2021 08:46 Ordering Phys: Ryder Palmer MD Technologist: Jessie Fernández Exam Location: [facility] – [place], [place] Indication: Arrhythmia BP: 132 / 77 HR: 111 Rhythm: Atrial fibrillation Technical Quality: Technically difficult study MEASUREMENTS (Male / Female) Normal Values 2D ECHO LV Diastolic Diameter PLAX 4.6 cm 4.2 - 5.9 / 3.9 - 5.3 cm LV Systolic Diameter PLAX 3.4 cm LV Chamber Size 3.8 cm IVS Diastolic Thickness 2.2 cm 0.6 - 1.0 / 0.6 - 0.9 cm IVS Systolic Thickness 2.8 cm LVPW Diastolic Thickness 1.6 cm 0.6 - 1.0 / 0.6 - 0.9 cm LVPW Systolic Thickness 1.8 cm RV Chamber Size 3.7 cm LVOT Diameter 2.0 cm LV Ejection Fraction 2D Teich 49.6 % LA Diameter 5.3 cm LA Width 4.0 cm LA Height 7.1 cm RA Width 3.8 cm RA Height 5.8 cm Aorta at Sinotubular Diameter 2.7 cm M-MODE LV Diastolic Diameter MM 4.5 cm 4.2 - 5.9 / 3.9 - 5.3 cm LV Systolic Diameter MM 3.5 cm LV Ejection Fraction MM Teich 43.0 % IVS Diastolic Thickness MM 1.8 cm 0.6 - 1.0 / 0.6 - 0.9 cm IVS Systolic Thickness MM 1.9 cm LVPW Diastolic Thickness MM 1.7 cm 0.6 - 1.0 / 0.6 - 0.9 cm LVPW Systolic Thickness MM 1.9 cm RV Diastolic Diameter MM 1.8 cm Aortic Annulus Diameter 4.3 cm LA Ao Ratio MM 1.4 MV E Point Septal Separation 1.0 cm DOPPLER AV Peak Velocity 178.3 cm/s LVOT Peak Velocity 83.0 cm/s AV Area Cont Eq vti 1.5 cm squared AV Area Cont Eq pk 1.4 cm squared MV Area PHT 4.1 cm squared MV E' Velocity 172.0 cm/s TR Peak Velocity 267.0 cm/s TR Peak Gradient 28.5 mmHg TR Mean Velocity 220.5 cm/s TR Mean Gradient 19.8 mmHg TR Velocity Time Integral 89.1 cm TV Peak E Velocity 76.0 cm/s Right Atrial Pressure 3.0 mmHg Pulmonary Artery Systolic Pressu 31.5 mmHg RV Acceleration Time 0.1 s RV Ejection Time 0.3 s RV AcT/ET 0.2 FINDINGS Left Ventricle Normal left ventricular size. LV systolic function is borderline low with EF of 45-50%. Mild global hypokinesis. Diastolic function is indeterminate because of atrial fibrillation. Right Ventricle The right ventricle is normal in size and function. Right Atrium The right atrium is normal in size. Left Atrium The left atrium is normal severely enlarged Mitral Valve Mitral valve is thickened. There is mild mitral regurgitation. Aortic Valve Aortic valve is thickened and calcified. Mild aortic stenosis with aortic valve area of 1.33 cm squared and mean gradient across aortic valve of 9 mmHg. Mild aortic regurgitation Tricuspid Valve Grossly normal. Mild tricuspid regurgitation. RVSP is 35 to 40 mmHg. This is consistent with mild pulmonary hypertension Pulmonic Valve Grossly normal. There is mild to moderate pulmonic regurgitation. Pericardium Normal pericardium without effusion. Aorta Normal ascending aorta dimension. CONCLUSIONS LV systolic function is borderline low with EF of 45 to 50%. Mild global hypokinesis. Diastolic function is indeterminate because of atrial fibrillation. Left atrium is severely enlarged. Mitral valve is thickened. Mild mitral regurgitation. Aortic valve is thickened and calcified. Mild aortic stenosis with aortic valve area of 1.33 cm squared and mean gradient across aortic valve of 9 mmHg. Mild aortic regurgitation Mild tricuspid regurgitation. Mild pulmonary hypertension. Mild to moderate pulmonary regurgitation. No comparison studies are available Wilmar Kiran MD (Electronically Signed) Final Date: 23 July 2021 17:42 S
[2021-07-23] MEDS: enoxaparin 40 mg/0.4 mL Syringe SUBCUT (20:20)
[2021-07-24] VITALS (7 sets, daily range): BP systolic 111–145; BP diastolic 56–89; PULSE 54–118; RESP 17–20; TEMP 36.6–36.7; O2SAT 93–98
[2021-07-24] MEDS: acetaminophen 325 mg Tablet 650 MG PO ×2 (02:13→15:30)
[2021-07-24] MEDS: sertraline 50 mg Tablet PO (07:43)
[2021-07-24] MEDS: finasteride 5 mg Tablet PO (07:43)
[2021-07-24] MEDS: topiramate 25 mg Tablet 75 MG PO ×2 (07:43→17:05)
[2021-07-24] MEDS: metoprolol tartrate 25 mg Tablet PO ×2 (07:43→17:05)
[2021-07-24] MEDS: atorvastatin 40 mg Tablet PO (07:43)
--- NOTE | 2021-07-24 16:04 | P.PN_ITS ---
Subjective Subjective: Interval history: No acute events overnight. Denies any N/V.. Working with PT today. at bedside. Given lab holiday today. Vitals/I&O/Wt Last Vital Signs Temp 97.9 F 07/24/21 15:24 Pulse 82 07/24/21 15:24 Resp 18 07/24/21 15:24 BP 129/76 07/24/21 15:24 Pulse Ox 98 07/24/21 15:24 07/24/21 07/24/21 07/24/21 06:59 14:59 22:59 Intake Total 100 / 820 250 / 250 Output Total 350 / 350 475 / 825 Balance 100 / -180 -100 / -100 -475 / -575 Weight last 48 hrs Weight 101.378 kg Physical Exam Narrative: EXAM NARRATIVE: General exam is a white male, who is very hard of hearing, who responds appropriately when questioned. He seems to have some memory deficits but family supplements history. HEENT: Multiple well scabbed sutures present on the right forehead above the eyebrow. Right and left demonstrate a pupil that is reactive. Flickering is noted consistent with cataract lens replacement. Oropharynx is clear Neck is supple, surgical scar consistent with carotid endarterectomy noted on the left Cardiovascular irregular, irregular with a 2/6 systolic murmur Lungs clear no wheezing or crackles Abdomen is soft, positive bowel sounds. No obvious organomegaly exam is deferred Extremities no cyanosis clubbing. Trace edema is present bilaterally. Venous stasis changes noted bilaterally. Skin no rash Neuro some difficulty in word finding ability. Some weakness, 4/5 onupper and right lower extremity. Family assures me this is old. Data : 07/23/21 02:53 07/23/21 02:53 A&P Assessment and plan (1) Fall: Most likely mechanical secondary to residual right-sided partial hemiparesis, blindness, memory deficits and hearing difficulties. Cannot rule out arrhythmia generating fall although I think it is less likely. As per cardiology fall most likely mechanical. Continue with telemetry. For now has remained stable PT/OT evaluation appreciated. Status: Acute (2) Arrhythmia: Cardiology recommends appreciated. Echocardiogram results consistent with an EF of 45 to 50%, mild global LV hypokinesia, enlarged LA, mild MR, mild aortic stenosis, mild pulmonary hypertension. Cardiology was concerned during the last visit that arrhythmia could have been a cause of his falls. Status: Acute (3) Closed head injury: He sustained a laceration to his right forehead requiring multiple sutures. From my understanding there was some arterial bleeding which was resolved with suturing. We will hold his apixaban tonight. Not a good candidate for HIT considering multiple falls. Will reassess by cardiology, and discussed with family whether he should continue this in the future. Status: Acute Additional A&P Information Coronary artery disease. Appears stable currently History of hypertension Allow natural . Although they would want to entertain any discussion regarding possibilities of treatment if he takes a downturn. Lovenox for DVT prophylaxis Observation. Family would like consideration of rehabilitation considering multiple falls and weakness. Discharge planning: Discussed with case management. SNF placement for further rehabitation. Attestations Medical Necessity Statement*: Requires further hospitalization for safe discharge planning as patient is at high risk of multiple falls, catastrophic bleeding and failure to thrive. Time Spent in Patient Care: 16 - 35 minutes (>than 50% of time spent in counselling and/or direct pt care on unit) . Coding Level of Care Code Acute Electrical Installation Inspector for [facility] Fwd Diagnoses Fall W19.XXXA Arrhythmia I49.9 Closed head injury S09.90XA
[2021-07-24] MEDS: enoxaparin 40 mg/0.4 mL Syringe SUBCUT (19:31)
[2021-07-25] VITALS: BP 138/72; PULSE 87; RESP 18; TEMP 36.7; O2SAT 94
[2021-07-25 04:00] VITALS: BP 134/65; PULSE 103; RESP 17; TEMP 36.5; O2SAT 96
[2021-07-25 06:01] LABS: Basophils % 0.4 %; Eosinophils # 0.1 10^3/uL (0.0-0.8); Eosinophils % 1.4 %; Hematocrit 36.5 % (42.0-52.0); Hemoglobin 11.3 g/dL (11.7-16.6); Lymphocytes % 12.8 %; Mean Corpuscular Hemoglobin 26.2 pg (28.0-34.0); Mean Corpuscular Volume 84.7 fl (80-94); Mean Platelet Volume 10.4 fL (7.4-10.4); Monocytes # 0.9 10^3/uL (0.2-0.9); Monocytes % 10.7 %; Neutrophils # 5.91 10^3/uL (1.8-7.7); Neutrophils % 74.1 %; Nucleated Red Blood Cells % 0 %; Platelet Count 267 10^3/cmm (130-400); Red Blood Count 4.31 10^6/uL (4.1-5.3); Red Cell Distribution Width 16.8 % (12.1-15.1)
[2021-07-25 06:28] LABS: Alanine Aminotransferase 12 U/L (0-41); Albumin Level 3.5 g/dL (3.5-5.2); Alkaline Phosphatase 118 IU/L (40-130); Anion Gap 17.8 (5-19); Aspartate Amino Transferase 12 U/L (0-40); Blood Urea Nitrogen 17 mg/dL (8-23); Carbon Dioxide 19 mmol/L (22-29); Chloride 108 mmol/L (98-107); Globulin 2.3 g/dL (1.3-4.6); Glucose 97 mg/dL (65-115); Osmolality Calculated 293 mOsm/kg (285-295); Potassium 3.8 mmol/L (3.5-5.1); Sodium 141 mmol/L (136-145); Total Bilirubin 0.3 mg/dL (0.15-1.2); Total Protein 5.8 g/dL (6.6-8.7)
[2021-07-25 07:22] VITALS: BP 120/73; PULSE 87; RESP 16; TEMP 36.3; O2SAT 96
[2021-07-25 08:00] VITALS: BP 120/73; PULSE 87; RESP 16; TEMP 36.3
[2021-07-25] MEDS: sertraline 50 mg Tablet PO (08:15)
[2021-07-25] MEDS: metoprolol tartrate 25 mg Tablet PO (08:15)
[2021-07-25] MEDS: atorvastatin 40 mg Tablet PO (08:15)
[2021-07-25] MEDS: finasteride 5 mg Tablet PO (08:15)
[2021-07-25] MEDS: topiramate 25 mg Tablet 75 MG PO (08:20)
--- NOTE | 2021-07-25 09:56 | PC.CHAP ---
Pastoral Care Encounter/Spiritual Assessment Type of Contact [] Declined recruitment specialist visit [] Patient/Family/Request visit [] Outpatient visit [] Follow-up visit [] Physician referral [] Code/Alert [x] Routine visit [] Staff referral [] Actively dying [] Patient sleeping [] Family support [] [] Out of room [] Palliative care [] [] Receiving care in room [] Pre-surgical visit [] Trauma [] Long length of stay [] ICU visit [] Other: Relational/Emotional Strength [x] Patient feels connected with others/family/visitors/staff [] Distress [] Loneliness/isolation [] Abandonment Spirituality of Patient [x] Person of Vi [] Attends Jehov[employer] of their Vi x[x] Believes in Prayer [] Reads Bible or Nondenominational materials [] There are Spiritual issues to be addressed Eeg Tech Interventions [x] Prayer [x] Active listening [] Non-anxious presence [x] Spiritual/emotional support [] Crisis/trauma care [x] Spiritual counseling [] Bereavement support [] Provided bereavement packet [] Provided Bible/devotional materials [] Provided toy/stuffed animal, coloring book to patient or family member [] Provided Communion [] Anointing/[place] [] Salvation [x] Completed spiritual assessment [] Other: Impact on Illness or Injury [] Angry [] Fearful [x] Anxious [] Often cries [] Exhaustion [] Unable to work [] Unable to attend sabianist [] Unable to walk/stand [] Unable to read [] Unable to drive [] Unable to eat/drink [] Unable to sleep [] Unable to be with family [] Patient intubated [] Other: Summary Time spent with patient 15 min
--- NOTE | 2021-07-25 11:04 | PC.SOCIAL ---
IMM update IMM Updated with patient. Copy pg 2 provided. Initialled, dated, timed, and placed in chart.
[2021-07-25 11:18] VITALS: BP 118/61; PULSE 100; RESP 16; TEMP 37.1; O2SAT 98
--- NOTE | 2021-07-25 12:26 | PM.DCS ---
Discharge Providers Date of Admission: 07/22/21 14:50 Date of Discharge: July 25, 2021 Attending Provider at Admission: Ryder Palmer MD Attending Provider at Discharge: Satya Vance Primary Care Provider: Melanie Whyte DO Diagnoses at Discharge Discharge Diagnosis (1) Fall: Status: Acute (2) Arrhythmia: Status: Acute (3) Closed head injury: Status: Acute Reason for Visit Reason for Visit: FALL, HEAD LAC Hospital Course Hospital Course Pleasant 81-year-old gentleman with past history of CVA who was evaluated after a fall with laceration of the right side of the forehead above the eyebrow, which was repaired in ER with sutures placed, Eliquis which he takes for atrial fibrillation has been held. Was assessed by cardiology with whom follows in outpatient clinic as well, recently with plans for echocardiogram and event monitor. Echocardiogram obtained while in the hospital showing 45-50% mild global LV hypokinesia, enlarged LA, mild MR, mild left ear, mild pulmonary hypertension. Full suspected to be mechanical, but event monitor as per prior orders is requested for him, if possible to be placed prior to discharge. He will proceed [facility] at discharge to continue rehabilitation. Eliquis for now is on hold, please reassess him with consideration whether safe to resume Eliquis depending on his progress, otherwise if risk of fall still significant, consider, discussed and referral for left atrial appendage occlusion device if this is something patient and family would be interested in. Discussed with his who is in agreement. Please continue to taper down and discontinue gradually bupropion to avoid contribution to further falls. Physical Exam Const: COMMON NORMALS: no acute distress GENERAL APPEARANCE: frail appearing HENMT: COMMON NORMALS: oropharynx normal Neck/C-Spine: COMMON NORMALS: no JVD Resp: COMMON NORMALS: normal respiratory effort and clear to auscultation bilaterally AUSCULTATION: clear to auscultation bilaterally Cardio: COMMON NORMALS: no JVD, regular rhythm, S1 normal heart sound present, S2 normal heart sound present and No murmurs present (Cardio) RHYTHM: regular rhythm HEART SOUNDS: S1 normal heart sound present and S2 normal heart sound present GI: COMMON NORMALS: Normal to inspection, nondistended, normoactive bowel sounds present, Soft to palpation and non-tender PALPATION: Yes Soft to palpation Extremity: COMMON NORMALS: no joint enlargement and no pedal edema Neuro: COMMON NORMALS: moves all extremities SPEECH: abnormal speech (aphasia) Details: garbled MOTOR EXAM: Other motor observations present (R side<L) Skin: COMMON NORMALS: no rashes or lesions noted GENERAL SKIN EXAM: no rashes or lesions noted Discharge Data Data Completed and Pending: Completed Studies During Hospitalization Category Date Time Status CT cervical spin wo con* [id number] Urge nt Cat Scan 07/22/21 11:[address] facial bones w o con* [id number] Urgen t Cat Scan 07/22/21 11:[address] head wo con* 7 0450 Urgent Cat Scan 07/22/21 11:53 Completed XR knee RT 1-2V 7 3560 Urgent Exams 07/22/21 14:06 Completed CV. echo complete * [id number] Routine Ultrasound 07/23/21 19:46 Completed Pending at discharge Category Date Time Status Retype for Patiet s ABO/Rh Routine Lab 07/22/21 14:33 Ordered Labs from last 24 hours 07/25/21 07/25/21 04:33 04:33 WBC 8.0 RBC 4.31 Hgb 11.3 L Hct 36.5 L MCV 84.7 MCH 26.2 L MCHC 31.0 RDW 16.8 H Plt Count 267 MPV 10.4 Neut % (Auto) 74.1 Lymph % (Auto) 12.8 [place] % (Auto) 10.7 Eos % (Auto) 1.4 Baso % (Auto) 0.4 Neut # (Auto) 5.91 Lymph # (Auto) 1.0 [place] # (Auto) 0.9 Eos # (Auto) 0.1 Baso # (Auto) 0.0 Nucleated RBC % (a uto) 0 Nucleated RBCs # 0.0 Sodium 141 Potassium 3.8 Chloride 108 H Carbon Dioxide 19 L Anion Gap 17.8 BUN 17 Creatinine 0.9 GFR Calculation Not Reportable Glucose 97 Calculated Osmolal ity 293 Calcium 8.0 L Total Bilirubin 0.3 AST 12 ALT 12 Alkaline Phosphata se 118 Total Protein 5.8 L Albumin 3.5 Globulin 2.3 Vitals: Last Vital Signs Temp 98.7 F 07/25/21 11:18 Pulse 100 07/25/21 11:18 Resp 16 07/25/21 11:18 BP 118/61 07/25/21 11:18 Pulse Ox 98 07/25/21 11:18 Discharge Plan Discharge Patient Disposition: Xfer SNF Condition: Stable Prescriptions: Continued topiramate [Topamax] 50 mg tablet 75 mg PO BID RF: 0 Multaq 400 mg tablet 400 mg PO BID RF: 0 sertraline 50 mg tablet 50 mg PO DAILY RF: 0 atorvastatin 40 mg tablet 40 mg PO DAILY RF: 0 melatonin 3 mg tablet 3 mg PO BEDTIME RF: 0 finasteride 5 mg tablet 5 mg PO DAILY RF: 0 alprazolam 0.25 mg tablet 0.25 mg PO BEDTIME PRN (Reason: Anxiety) RF: 0 calcium carbonate [Calcium 600] 600 mg calcium (1,500 mg) tablet 600 mg PO DAILY RF: 0 nystatin 100,000 unit/gram cream 1 applic topical BID PRN (Reason: Rash) RF: 0 metoprolol tartrate 25 mg tablet 25 mg PO BID Qty: 60 RF: 0 ergocalciferol (vitamin D2) 1,250 mcg (50,000 unit) capsule 1,250 mcg PO Q30D RF: 0 Changed bupropion HCl 100 mg tablet 100 mg PO BID Qty: 0 RF: 0 Held Eliquis 5 mg tablet 5 mg PO BID RF: 0 Hold Instructions: Resume on 08/01/21. Discharge Orders: Discharge Order (Routine); Ordered 07/25/21 Ordered By: Satya Vance Referrals: Melanie Whyte DO [Primary Care Provider] - 4-7 days [facility], [Staff Physician] - 1-3 days Shelbie Ba FNP [Nurse Practitioner] - 2 weeks Discharge Diet: Cardiac Discharge Activity: Increase activity as tolerated and As per PT/OT instructions Activity Restrictions/Additional Instructions: Cardiac event monitor to be placed as per Dr. Jimenez's order prior to discharge if possible, otherwise as scheduled. Please follow-up at wound care clinic for suture removal in 2-3 days. Apixaban placed on hold over the next week, subsequently please discuss with cardiology and primary provider depending on how he is doing with the risk is too great to continue with anticoagulation given recurrent falls with prior CVA. Consider watchman device. Maintain fall precautions. Continue PT, OT. Please follow up on blood counts in 4 days for anemia. Please recheck thyroid studies in 3 weeks. Please note Wellbutrin dose has been decreased to twice daily. Please continue to wean down slowly and discontinue if possible to avoid contribution to further falls. Discharge Attestations Time Spent in Discharge Care*: greater than 30 min Quality Metrics Clinical Quality Measures During this hospital stay, did patient experience: None Coding Level of Care Code Acute [facility] [place] note Exam Comprehensive Diagnoses Fall W19.XXXA Arrhythmia I49.9 Closed head injury S09.90XA
--- NOTE | 2021-07-25 13:37 | PC.NURSE ---
Report called to [facility]. Report taken by TIFFANI Urbano.
[2021-07-25 13:58] VITALS: BP 118/61; PULSE 100; RESP 16; TEMP 37.1; O2SAT 98
--- NOTE | 2021-07-26 10:29 | PC.SOCIAL ---
Daughter Ryann Knapp requested call back and discussed multiple concerns. Status being obs going to SNF as private pay even though here 3 nights. She does not remember them signing SANCHEZ form etc. Time was not listed on form. Patient soiled self and no one to help. Heart monitor was not placed prior to dc and no explanation on why it could not be and too hard to bring patient back for this. Multiple concerns voiced and discussed. Sent information to appropriate parties to request feedback. etc. If more information received will follow up with daughter.
== END 2021-07-25 14:38 | disposition skilled nursing facility (03) ==
LOC: ER 15:50 → MEDSURG 18:18
PROVIDERS: Student in an Organized Health Care Education/Training Program; Admitting Provider Internal Medicine; Emergency Provider Emergency Medicine; PCP Family Medicine; Visit Provider Internal Medicine
DX: I49.9 Cardiac arrhythmia, unspecified (principal); I65.23 Occlusion and stenosis of bilateral carotid arteries; S01.81XA Laceration without foreign body of other part of head, initial encounter; W19.XXXA Unspecified fall, initial encounter; I25.10 Atherosclerotic heart disease of native coronary artery without angina pectoris; I10 Essential (primary) hypertension; I48.91 Unspecified atrial fibrillation; N40.0 Benign prostatic hyperplasia without lower urinary tract symptoms; E78.5 Hyperlipidemia, unspecified; F32.A Depression, unspecified; Z86.73 Personal history of transient ischemic attack (TIA), and cerebral infarction without residual deficits
CPT/HCPCS: 12013; 36415; 70450; 70486; 72125; 73560; 80048; 80053; 80061; 81001; 83540; 83550; 84439; 84443; 84481; 85025; 85610; 85730; 86850; 86900; 90471; 90715; 93005; 93306; 96365; 96372; 96375; 97110; 97116; 97161; 97166; 97530; 97535; 99285; 99291; G0378; J1650

== ENCOUNTER 2021-07-27 11:56 | Emergency (ER) | payer MEDICARE, BC, SELFPAY ==
--- NOTE | 2021-07-27 12:00 | CT_ITS ---
WS: [id number] CTA HEAD AND NECK TECHNIQUE: Contrast enhanced CTA of the head and neck with coronal and sagittal reformatted images an d maximum intensity projection (MIP) images. NASCET criteria utilized. CLINICAL INFORMATION: L sided deficits COMPARISON: None. DLP: All CT scans at [facility] use at least one of these dose optimization techniques: automated e xposure control; mA and/or kV adjustment per patient size (includes targeted exams where dose is matc hed to clinical indication); or iterative reconstruction. FINDINGS: Possible subacute infarct at the right frontoparietal junction near the vertex extending to the parasagittal cortex. Otherwise multiple chronic appearing infarct with encephalomalacia previous ly described. RIGHT: Right common carotid artery is patent. Moderate atheromatous plaque right carotid bulb with pr oximal ICA stenosis measuring approximately 50%. Right ICA remains patent to the skull base. LEFT: Left common carotid artery is patent. Dense calcified atheromatous plaque left carotid bulb ext ending into the ICA with left ICA stent. Carotid stent is patent with stenosis measuring approximatel y approximately 55%. Left ICA remains patent to the skull base. INTRACRANIAL CTA:Both vertebral arteries are patent. Basilar artery is patent. Normal vascularity to the BRAKE [employer]PA[employer]ER HYDR[employer]IC territories bilaterally. Patent right posterior communicating artery. Both ICAs are patent at the skull base. Mild cavernous carotid calcification. Normal vascularity to t he SAHARA and MCA territories bilaterally. No evidence of proximal high-grade stenosis or aneurysm. Aortic calcification. Mild calcification great vessel origins. Mild stenosis of the left common carot id artery origin. Mild mucosal thickening in the paranasal sinuses. Mastoid air cells well aerated. R ight frontal scalp contusion. Normal posterior nasopharynx. Cervical curve with spondylitic changes c ervical spine. CT/CT angio headneck* [id number] IMPRESSION: 1. Dense carotid bulb calcification right ICA with approximately 50% stenosis. 2. Patent left carotid stent with stenosis measuring approximately 55%. 3. Both vertebral arteries are patent. 4. Normal intracranial CTA. No evidence of flow-limiting stenosis. 5. Possible subacute infarct at the right frontoparietal junction near the allyson adilia extending to the parasagittal cortex. Notified Cristino Grayson MD at 07/27/2021 12:45 PM.
--- NOTE | 2021-07-27 12:01 | CT_ITS ---
WS: [id number] CT HEAD TECHNIQUE: Noncontrast CT of the head obtained from the skullbase to the vertex. CLINICAL INFORMATION: Symptoms of Acute Stroke COMPARISON: July 22, 2021 DLP: All CT scans at [facility] use at least one of these dose optimization techniques: automated e xposure control; mA and/or kV adjustment per patient size (includes targeted exams where dose is matc hed to clinical indication); or iterative reconstruction. FINDINGS: No evidence of intracranial hemorrhage. Moderate to advanced small vessel changes with moderate to ad vanced parenchymal volume loss. Chronic infarcts left temporal parietal junction with encephalomalaci a. Chronic infarct left frontoparietal junction with encephalomalacia. Chronic lacunar infarcts in th e right centrum semiovale extending into the lateral basal ganglia. Additional chronic infarct right parietal lobe posteriorly. Suspected subacute infarct in the right frontal parietal lobe at the vertex extending to the parasagi ttal cortex. Mastoid air cells are well aerated. Paranasal sinuses are well aerated. Soft tissue edema with scalp contusion involving the right frontal soft tissues. No visualized fractures. CT/CT head wo con* [id number] IMPRESSION: 1. No evidence of intracranial hemorrhage or mass effect. 2. Suspected subacute infarct in the right frontal parietal lobe at the vertex extending to the parasagittal cortex. 3. Multiple unchanged chronic infarcts with encephalomalacia described above Notified Cristino Grayson MD at 07/27/2021 12:30 PM.
--- NOTE | 2021-07-27 12:01 | ECG_ITS ---
[facility] Test Date: 2021-07-27 Pat Name: Ayo Carvajal Department: Room: Gender: Male Lung Splitter: : 1940 Requested By: Cristino Grayson Order Number: [id number] Aron MD: Lisa Pinto M.D. Measurements Intervals [place] Rate: 99 P: MN: QRS: 21 QRSD: 109 T: 31 QT: 371 QTc: 478 Interpretive Statements ATRIAL FIBRILLATION ANTEROLATERAL MYOCARDIAL INFARCTION , OF INDETERMINATE AGE [40+ ms Q WAVE IN I/aVL/V3-V6] Compared to ECG 07/22/2021 21:19:14 Aberrant conduction of supraventricular beat(s) no longer present Ventricular premature complex(es) no longer present Myocardial infarct finding still present Electronically Signed On 07-27-2021 16:25:41 HEALTH ADMINISTRATION TEACHER by Lisa Pinto M.D. [id number]
[2021-07-27] MEDS: iodixanol 320 mg/mL 100mL Btl IV (12:06)
[2021-07-27 12:08] VITALS: BP 136/81; PULSE 108; RESP 15; TEMP 37.2; O2SAT 98; BMI 31.8
--- NOTE | 2021-07-27 12:08 | ED_ITS ---
HPI - Neuro Symptoms/Deficit General: Chief Complaint: Neuro Symptoms/Deficit Stated Complaint: POSS STROKE Time Seen by Provider: 07/27/21 12:00 Limitations: altered mental status History of Present Illness: HPI Narrative: Mr. Carvajal is an 81-year-old gentleman with history of strokes and atrial fibrillation who presents to the emergency department due to strokelike symptoms. He currently resides at a [facility] facility and was last definitively known normal last night. Reportedly he was eating breakfast this morning at about 7 AM and, although not definitively, was probably normal at that time. Apparently family was visiting him at about 930 and noticed that he had weakness on his left side and was not his normal self. I attempted to figure out what happened in the interval however it is unclear as to why the patient did not arrive here until shortly before noon. Patient himself does not provide much history and history is otherwise limited by the fact that the patient is the only 1 in the room. He recently was in the hospital for a fall with closed head injury. At that time he was stopped on his Eliquis. Review of Systems General: Reports: ROS unobtainable due to mental status PFSH ED PFSH: Medical History Afib Arrhythmia BPH (benign prostatic hyperplasia) CVA (cerebral vascular accident) Decreased vision Depression Difficulty walking Fall History of cardioversion Hyperlipidemia Surgical History History of quadruple bypass Hx of knee surgery Hx of parathyroidectomy Hx of total knee replacement Family History Mother Lupus Dementia Father CAD (coronary artery disease), Onset Age: 64 Grandfather Cancer Denies family history of Diabetes Clotting disorder Chronic kidney disease (CKD) Suicide Anesthesia complication Bleeding disorder Lung disease Stroke Social History Smoking and tobacco status: never smoked Alcohol intake: never Physical Exam Narrative: EXAM NARRATIVE: GENERAL/CONSTITUTIONAL -chronically ill-appearing. No acute distress. Eyes - PERRL, no conjunctival injection ENMT - prior facial trauma with right-sided above by yimi present with large T-shaped injury, no active bleeding.. Moist mucous membranes NECK - supple. trachea midline CARDIOVASCULAR - regular rate and rhythm. Peripheral pulses 2+ and equal RESPIRATORY -clear to auscultation bilaterally. No retractions or accessory muscle use. ABDOMEN/GI - Nontender/Nondistended. No tenderness to percussion or evidence of peritonitis MSK - mild left hip pain to palpation. Extremities without obvious deformity or tenderness to palpation SKIN - Warm, Dry NEURO - alert but confused. The patient does have generalized weakness which is worse on the left. He has difficulty following some commands and cranial nerve exam is limited by previous facial trauma. Strength and sensation intact. Moves all extremities equally. Course ED course: - Patient was seen and evaluated by me at bedside - Patient placed on cardiac monitors, IV access obtained - Initial evaluation notable for exam as above. Based on exam he likely has new neurologic deficits compared to prior however the last definitive known time normal was last night. I called the patient's skilled nursing shortly after initial evaluation, there was no one there to speak with that had a more recent definitive last time normal. However as noted in HPI perhaps, if being generous, 730. I did question what took so long in getting the patient to the emergency department if symptoms were noticed at 930 in the patient showed up shortly before noon. No specific answer regarding this. - Discussed case with neurology, unfortunately the patient is not a candidate for TPA given time from symptom onset as well as other likely exclusionary categories.. - Labs notable for no leukocytosis. Hemoglobin similar to hospital discharge. No acute electrolyte abnormalities to explain patient's new neurologic symptoms. - Imaging notable for no acute hemorrhage noted on CT, he does have subacute findings which are likely correlate with the patient's symptoms. No LVO on CTA. On initial exam patient did have mild tenderness to palpation of the left superior hip and x-ray was obtained. Hip replacement was greater than 10 years ago likely making the screw head backing out clinically insignificant, I do not believe that the patient requires additional imaging for other findings as clinical history and exam does not support new periprosthetic fracture. I did discuss this finding with family - Upon serial reexamination after treatment the patient was similar - Based on patient history, evaluation, labs, and imaging as interpreted the most likely cause of the patient's condition is subacute stroke - Unfortunately, this patient presents a strong challenge regarding recurrent stroke prevention. I am surprised that he suffered a stroke so soon after stopping Eliquis. I had an extensive discussion regarding potential options i ncluding risks and benefits. Ultimately, in discussion with the family and the patient, the decision was made to resume the patient's Eliquis. I believe given his new stroke he will likely need wheelchair which perhaps will decrease the risk of future falls. Additionally, recurrent strokes are causing a significant degree of debility and the patient. - It was also discussed that further hospitalization likely will not clinically change anything for the patient (neurology service agreed during initial discussion). Family was comfortable with discharge. Return precautions, follow-up plan, and medications were discussed. Patient and family verbalized understanding and felt safe for discharge back to [facility] facility. Vital Signs: Vital signs: Vital Signs Temperature 98.1 F 07/27/21 16:17 Pulse Rate 105 H 07/27/21 16:17 Respiratory Rate 27 H 07/27/21 16:17 Blood Pressure 162/96 07/27/21 16:17 Pulse Oximetry 97 07/27/21 16:17 MDM - Neuro Symptoms/Deficit Medical Records: Attestation: I reviewed the patient's medical records. Lab Data: Attestation: I reviewed the patient's lab results. Labs: Lab Results 07/27/21 07/27/21 07/27/21 12:30 12:30 12:30 WBC 8.8 10^3/uL 10^3/ uL (4.0-10.0) RBC 4.07 10^6/uL L 10 ^6/uL (4.1-5.3) Hgb 10.8 g/dL L g/dL (11.7-16.6) Hct 34.2 % L % (42.0-52.0) MCV 84.0 fl fl (80-94) MCH 26.5 pg L pg (28.0-34.0) MCHC 31.6 g/dL g/dL (30.0-36.0) RDW 17.0 % H % (12.1-15.1) Plt Count 298 10^3/cmm 10^3 /cmm (130-400) MPV 10.0 fL fL (7.4-10.4) Neut % (Auto) 81.2 % % Lymph % (Auto) 8.8 % % [place] % (Auto) 9.3 % % Eos % (Auto) 0.2 % % Baso % (Auto) 0.2 % % Neut # (Auto) 7.12 10^3/uL 10^3 /uL (1.8-7.7) Lymph # (Auto) 0.8 10^3/uL 10^3/ uL (0.8-4.8) [place] # (Auto) 0.8 10^3/uL 10^3/ uL (0.2-0.9) Eos # (Auto) 0.0 10^3/uL 10^3/ uL (0.0-0.8) Baso # (Auto) 0.0 10^3/uL 10^3/ uL (0.0-0.1) Nucleated RBC % (a uto) 0 % % Nucleated RBCs # 0.0 /100WBC /100W BC PT 15.70 SECONDS H S ECONDS (12.1-14.9) INR 1.22 H (0.8-1.2) APTT 30.0 SECONDS SECO NDS (23.9-36.7) Sodium 139 mmol/L mmol/L (136-145) Potassium 3.9 mmol/L mmol/L (3.5-5.1) Chloride 105 mmol/L mmol/L (98-107) Carbon Dioxide 20 mmol/L L mmol/ L (22-29) Anion Gap 17.9 (5-19) BUN 19 mg/dL mg/dL (8-23) Creatinine 0.9 mg/dL mg/dL (0.7-1.2) GFR Calculation Not Reportable Glucose 111 mg/dL mg/dL (65-115) POC Glucose Calculated Osmolal ity 291 mOsm/kg mOsm/ kg (285-295) Calcium 8.4 mg/dL L mg/dL (8.5-10.5) Total Bilirubin 0.4 mg/dL mg/dL (0.15-1.2) AST 17 U/L U/L (0-40) ALT 15 U/L U/L (0-41) Alkaline Phosphata se 113 IU/L IU/L (40-130) Total Protein 6.2 g/dL L g/dL (6.6-8.7) Albumin 3.5 g/dL g/dL (3.5-5.2) Globulin 2.7 g/dL g/dL (1.3-4.6) Urine Color Urine Appearance Urine pH Ur Specific Gravit y Urine Protein Urine Glucose (UA) Urine Ketones Urine Blood Urine Nitrate Urine Bilirubin Urine Urobilinogen Ur Leukocyte Ruthie ase Urine Opiates Scre en Ur Barbiturates Sc reen Ur Phencyclidine S crn Ur Amphetamines Sc reen U Benzodiazepines Scrn Urine Cocaine Scre en U Marijuana (THC) Screen 07/27/21 07/27/21 07/27/21 12:46 13:42 13:42 WBC RBC Hgb Hct MCV MCH MCHC RDW Plt Count MPV Neut % (Auto) Lymph % (Auto) [place] % (Auto) Eos % (Auto) Baso % (Auto) Neut # (Auto) Lymph # (Auto) [place] # (Auto) Eos # (Auto) Baso # (Auto) Nucleated RBC % (a uto) Nucleated RBCs # PT INR APTT Sodium Potassium Chloride Carbon Dioxide Anion Gap BUN Creatinine GFR Calculation Glucose POC Glucose 134 mg/dL H mg/dL (70-110) Calculated Osmolal ity Calcium Total Bilirubin AST ALT Alkaline Phosphata se Total Protein Albumin Globulin Urine Color Yellow (Yellow) Urine Appearance Clear (CLEAR) Urine pH 6.5 (5-7) Ur Specific Gravit y 1.010 (1.005-1.030) Urine Protein Neg (Negative) Urine Glucose (UA) Norm (Normal) Urine Ketones Negative (Negative) Urine Blood Neg (Negative) Urine Nitrate Negative (Negative) Urine Bilirubin Neg (Negative) Urine Urobilinogen 1 mg/dL H mg/dL (Negative) Ur Leukocyte Ruthie ase Negative (Negative) Urine Opiates Scre en Negative ng/mL ng /mL (Negative) Ur Barbiturates Sc reen Negative ng/mL ng /mL (Negative) Ur Phencyclidine S crn Negative ng/mL ng /mL (Negative) Ur Amphetamines Sc reen Negative ng/mL ng /mL (Negative) U Benzodiazepines Scrn Negative ng/mL ng /mL (Negative) Urine Cocaine Scre en Negative ng/mL ng /mL (Negative) U Marijuana (THC) Screen Negative ng/mL ng /mL (Negative) Critical Care Time Critical Care Time: Critical Care Time: Yes Total Critical Care Time: 35 Attestation: Due to a high probability of clinically significant, possibly life threatening deterioration, the patient required my highest level of attention and preparedness to intervene emergently and I personally spent this critical care time directly and personally managing the patient. This critical care time included obtaining a history; examining the patient; pulse oximetry; ordering and review of laboratory and imaging studies; arranging urgent treatment with development of a management plan; evaluation of patient's response to treatment; frequent reassessment; and, discussions with other providers as applicable. It was exclusive of separately billable procedures. Discharge Plan Discharge Patient Disposition: [facility] Clinical Impression: CVA (cerebral vascular accident) Condition: Stable Discharge Orders: Discharge ED (Routine); Ordered 07/27/21 Ordered By: Cristino Grayson Referrals: Melanie Whyte DO [Primary Care Provider] - Discharge Diet: Usual diet Discharge Activity: Resume usual activity and As per PT/OT instructions Patient Instructions: Stroke (DC) Activity Restrictions/Additional Instructions: Thank you for visiting the emergency department. You were seen and evaluated for stroke like symptoms. I do believe that you had an ischemic stroke. After discussion of risks and benefits please resume your apixaban 5 mg twice daily. Please also continue PT and OT evaluation and treatment. Return to the emergency department for any new neurologic symptoms, any falls, or anything else that you are concerned about and feel needs emergency department evaluation. Coding Level of Care Code ED Quilt Stuffer for Gail Liu
--- NOTE | 2021-07-27 12:39 | XRR_ITS ---
PROCEDURE INFORMATION: Exam: XR Left Hip Exam date and time: 07/27/2021 12:39 PM Age: 81 years old Clinical indication: Left hip pain. Leg rotation. TECHNIQUE: Imaging protocol: XR Left hip. Views: 2 or 3 views hip with pelvis when performed. COMPARISON: CR XR pelvis 1-2V* [id number] 04/26/2021 12:10 PM FINDINGS: Bones/joints: A femoral gagandeep is noted across an old femoral fracture with residual deformity. There are interlocking screws in the distal gagandeep. One of the screw heads appears backed out 5 mm from the osseous surface laterally. A couple proximal screws are noted in the femoral diaphysis. There is a lucent line that extends partially through the femur on the cross-table radiograph that likely reflects the old fracture line. A new nondisplaced periprosthetic fracture is difficult to completely exclude. Soft tissues: No gross soft tissue swelling. XR/XR hip LT 2-3V wo/w pel* [id number] IMPRESSION: 1. A femoral gagandeep is noted across an old femoral fracture with residual deformity. There are interlocking screws in the distal gagandeep. One of the screw heads appears backed out 5 mm from the osseous surface laterally. 2. There is a lucent line that extends partially through the femur on the cross-table radiograph that likely reflects the old fracture line. A new nondisplaced periprosthetic fracture is difficult to completely exclude.
--- NOTE | 2021-07-27 12:39 | XR_ITS ---
WS: [id number] Exam: XR chest 1V portable [id number] Date/Time of Exam: 07/27/2021 12:39 PM Reason For Exam: stroke like symptoms Comparison 07/10/2021. The lungs are fully expanded and clear. Mild cardiac enlargement unchanged. No pleural effusions. Sig ns of previous CABG surgery. Monitoring leads superimpose the chest. XR/XR chest 1V portable [id number] IMPRESSION: 1. Mild cardiac enlargement. No acute process noted.
[2021-07-27 12:40] LABS: Basophils % 0.2 %; Eosinophils % 0.2 %; Hematocrit 34.2 % (42.0-52.0); Hemoglobin 10.8 g/dL (11.7-16.6); Lymphocytes # 0.8 10^3/uL (0.8-4.8); Lymphocytes % 8.8 %; Mean Corpuscular HGB Conc 31.6 g/dL (30.0-36.0); Mean Corpuscular Hemoglobin 26.5 pg (28.0-34.0); Monocytes # 0.8 10^3/uL (0.2-0.9); Monocytes % 9.3 %; Neutrophils # 7.12 10^3/uL (1.8-7.7); Neutrophils % 81.2 %; Nucleated Red Blood Cells % 0 %; Platelet Count 298 10^3/cmm (130-400); Red Blood Count 4.07 10^6/uL (4.1-5.3); White Blood Count 8.8 10^3/uL (4.0-10.0)
--- NOTE | 2021-07-27 12:45 | PC.PHAR ---
pt is from [facility]-arjun nurse from [facility] states the pt had his am meds
[2021-07-27 12:49] LABS: Glucose Point of Care 134 mg/dL (70-110)
[2021-07-27 12:55] LABS: INR 1.22 (0.8-1.2)
[2021-07-27 12:59] LABS: Alanine Aminotransferase 15 U/L (0-41); Albumin Level 3.5 g/dL (3.5-5.2); Alkaline Phosphatase 113 IU/L (40-130); Anion Gap 17.9 (5-19); Aspartate Amino Transferase 17 U/L (0-40); Blood Urea Nitrogen 19 mg/dL (8-23); Calcium 8.4 mg/dL (8.5-10.5); Carbon Dioxide 20 mmol/L (22-29); Chloride 105 mmol/L (98-107); Globulin 2.7 g/dL (1.3-4.6); Glucose 111 mg/dL (65-115); Osmolality Calculated 291 mOsm/kg (285-295); Potassium 3.9 mmol/L (3.5-5.1); Sodium 139 mmol/L (136-145); Total Bilirubin 0.4 mg/dL (0.15-1.2); Total Protein 6.2 g/dL (6.6-8.7)
[2021-07-27 13:49] LABS: Add Urine Microscopic? NO; Charge for UA Resulting for Rev
[2021-07-27 13:55] LABS: Bilirubin Urine Neg (Negative); Blood Urine Neg (Negative); Glucose Urine UA Norm (Normal); Ketones Urine Negative (Negative); Leukocyte Esterase Urine Negative (Negative); Nitrate Urine Negative (Negative); Protein Urine Neg (Negative); Urine Appearance Clear (CLEAR); Urine Color Yellow (Yellow); Urobilinogen Urine 1 mg/dL (Negative); pH Urine 6.5 (5-7)
[2021-07-27 14:29] LABS: Amphetamines Screen Urine Negative (Negative); Barbiturates Screen Urine Negative (Negative); Benzodiazepines Screen Urine Negative (Negative); Cocaine Screen Urine Negative (Negative); Opiate Screen Urine Negative (Negative); PCP Screen Urine Negative (Negative); THC Screen Urine Negative (Negative)
--- NOTE | 2021-07-27 15:26 | PC.NURSE ---
Speech advised pt is back at baseline for swallow study. Speech therapist was advised Dr. Grayson. Per speech, pt ok with regular diet
[2021-07-27 16:17] VITALS: BP 162/96; PULSE 103; PULSE 105; RESP 27; TEMP 36.7; O2SAT 97
--- NOTE | 2021-07-27 18:42 | PC.NURSE ---
Report called to [facility], given to Maty lease out man. Family advised EMS transport scheduled to arrive at 1900 to transport pt back to facility. Daughter at bedside, states she plans to follow EMS to [facility].
== END 2021-07-27 19:38 ==
PROVIDERS: Emergency Provider Emergency Medicine; PCP Family Medicine
DX: I63.9 Cerebral infarction, unspecified (principal); E78.5 Hyperlipidemia, unspecified; Z86.73 Personal history of transient ischemic attack (TIA), and cerebral infarction without residual deficits
CPT/HCPCS: 36416; 70450; 70496; 70498; 71045; 73502; 80053; 80306; 81003; 82962; 85025; 85610; 85730; 92610; 93005; 99284; Q9967